=== PATIENT | female | born 2000 | race Caucasian/White ===

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

== ENCOUNTER 2020-01-19 09:36 | Emergency (ER) | payer OTHER ==
[2020-01-19 09:48] VITALS: BP 114/70; PULSE 95
--- NOTE | 2020-01-19 10:13 | EDM.PDOC ---
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 About 1 hour prior to arrival, the patient was upset and punched a wall with her left hand. She presents to the emergency department complaining of pain to the left fifth metacarpal and the left side of her wrist joint worse with movement, better with rest. Also complains of some shooting pain up the proximal ulnar side of the left forearm. Denies any other injuries or complaints. No self treatment prior to arrival. Past medical history: Reviewed, no additional pertinent history. Surgical history: Reviewed in system, no additional pertinent history. Social history: Reviewed in system, no additional pertinent history. Family history: Reviewed in system, no additional pertinent history. PHYSICAL EXAM Vital signs reviewed. Nursing notes reviewed. Constitutional: Awake, alert, non-distressed. Head: Normocephalic, atraumatic. Eyes: EOMI, conjunctiva normal, no discharge, no scleral icterus. Cardiovascular: 2+ left radial pulse, capillary refill less than 2 seconds. Pulmonary: normal work of breathing, no accessory muscle use. Abdomen/GI: nondistended Musculoskeletal: No deformities. Mild tenderness to palpation to the proximal aspect of the left fifth metacarpal and over the left triquetrum and pisiform bones. Limited active range of motion of the left wrist due to pain. Able to make a thumbs up and okay sign with left hand, unable to touch the left thumb to the left fifth finger due to pain at the left wrist joint. Integumentary: Appropriate color for ethnicity, warm, dry, no pallor or jaundice, no rash. Neurologic: Alert, answering questions appropriately, normal speech, no facial droop, moving all extremities well. Complains of subjective diminished sensation to the left finger and the left fourth finger, although not in the classic ulnar nerve distribution given that there is involvement of the radial side of the left fourth finger. Psychiatric: Appropriate mood and affect, normal thought process. left hand Pain Score (Numeric/FACES): 7 - Related Data Allergies Allergy/AdvReac Type Severity Reaction Status Date / Time amoxicillin Allergy Hives Verified 01/19/20 09:48 Home Meds: Home Meds . [No Known Home Meds] 12/31/16 [History] Past Medical History - Past Health History Medical/Surgical History: Denies Medical/Surgical History HEENT History: Reports: None Cardiovascular History: Reports: None Respiratory History: Reports: None Gastrointestinal History: Reports: None Genitourinary History: Reports: None DRY COLOR MIXER History: Reports: None, Therapeutic Musculoskeletal History: Reports: Other (See Below) Other Musculoskeletal History: Avascular necrosis of the right hip (Djqh-Plnvv-Gpdqssv Disease) Neurological History: Reports: None Psychiatric History: Reports: Depression Endocrine/Metabolic History: Reports: None Insulin Pump Model and Authorization Nurse: None Hematologic History: Reports: None Oncologic (Cancer) History: Reports: None Dermatologic History: Reports: None - Infectious Disease History Infectious Disease History: Reports: None - Past Surgical History Head Surgeries/Procedures: Reports: None HEENT Surgical History: Reports: Myringotomy w Tube(s) Other Musculoskeletal Surgeries/Procedures:: hx hip surgery Social & Family History - Family History Family Medical History: Noncontributory - Tobacco Use Smoking Status *Q: Current Some Day Smoker Years of Tobacco use: 1 Packs/Tins Daily: 0 - Caffeine Use Caffeine Use: Reports: Coffee - Recreational Drug Use Recreational Drug Use: No Review of Systems - Review of Systems Review Of Systems: See Below ED EXAM, GENERAL - Physical Exam Exam: See Below Course - Vital Signs Text/Narrative:: Patient hemodynamically stable, afebrile, well-appearing, looks nontoxic. Differential diagnosis includes but is not limited to: Fracture, dislocation, soft tissue injury, vascular injury, nerve injury, and many others. Strong left radial pulse, patient does complain of diminished sensation in a mixture of the ulnar and median distributions of the left hand, but a nerve injury would be unlikely given lack of swelling or bony abnormalities noted on x-rays. On external visual examination, there is no evidence of an abnormality to the left hand, wrist, or forearm. No tenderness to palpation of the left anatomic snuffbox so low suspicion for scaphoid fracture. Offered any oral analgesic medications, which she declined. X-rays the left wrist and hand were negative for bony injury. Suspect a wrist sprain. Will place a removable left wrist splint, duration 1 month, indication: Left wrist sprain. Stable to discharge home with outpatient primary care follow-up. Recommended [id number] Tylenol and Motrin along with ice packs as needed for pain. Strict emergency department return precautions were provided, patient indicated understanding. All questions were answered prior to departure. Discharged in good condition. Last Recorded V/S: Last Vital Signs Temp 36.3 C 01/19/20 09:46 Pulse 95 01/19/20 09:46 Resp 16 01/19/20 09:46 BP 114/70 01/19/20 09:46 Pulse Ox 97 01/19/20 09:46 - Orders/Labs/Meds Orders: Active Orders 24 hr Category Date Time Status DME for Discharge [COMM] Stat Oth 01/19/20 11:07 Ordered Departure - Departure Time of Disposition: 10:50 Disposition: Home, Self-Care 01 Condition: Good Clinical Impression: Left wrist sprain Qualifiers: Encounter type: initial encounter Qualified Code(s): S63.502A - Unspecified sprain of left wrist, initial encounter - Discharge Information *PRESCRIPTION DRUG MONITORING PROGRAM REVIEWED*: Not Applicable *COPY OF PRESCRIPTION DRUG MONITORING REPORT IN PATIENT JOSEY: Not Applicable Instructions: Wrist Sprain, Adult, How to Use Cold Therapy Referrals: [facility] - Orthopaedics [Provider Group] - 2 Weeks (As needed for any persistent complaints.) Forms: ED Department Discharge Additional Instructions: Thank you for choosing the [facility] [place] [facility] in [place] for your medical needs today. It was a pleasure caring for you. You were seen in the emergency department for left hand and wrist pain. X-rays were negative. I suspect that you have a sprain of your left wrist joint. We will place you in a removable splint. I recommend [id number] Tylenol and Motrin as needed for pain along with an ice pack, you can apply ice for 15 minutes every hour. I would follow-up with orthopedic surgery clinic in the next 1 to 2 weeks if you are not feeling better. If your symptoms worsen, come back to the ER immediately. Please return the emergency department immediately if your symptoms worsen or if you feel worse. The following information is given to patients seen in the emergency department who are being discharged. This information is to outline your options for follow-up care. We provide all patients seen in our emergency department with a follow-up referral. The need for follow-up, as well as the timing and circumstances, are variable depending upon the specifics of your emergency department visit. If you don't have a primary care physician on staff, we will provide you with a referral. We always advise you to contact your personal physician following an emergency department visit to inform them of the circumstance of the visit and for follow-up with them and/or the need for any referrals to a consulting specialist. The emergency department will also refer you to a specialist when appropriate. This referral assures that you have the opportunity for follow-up care with a specialist. All of these measure are taken in an effort to provide you with optimal care, which includes your follow-up. Under all circumstances we always encourage you to contact your private physician who remains a resource for coordinating your care. When calling for follow-up care, please make the office aware that this follow-up is from your recent emergency room visit. If for any reason you are refused follow-up, please contact the [facility] Emergency Department at and asked to speak to the emergency department charge nurse. If you do not have a primary care physician that is caring for you, you can contact these clinics below to set up an appointment to establish care: [facility] - Primary [facility] [address] [place] [address] [facility] [address] [place] [address] Sepsis Event Note (ED) - Evaluation Sepsis Screening Result: No Definite Risk - Focused Exam Vital Signs: Vital Signs Temp Pulse Resp BP Pulse Ox 01/19/20 09:46 36.3 C 95 16 114/70 97 - My Orders Last 24 Hours: My Active Orders 01/19/20 11:07 DME for Discharge [COMM] Stat - Assessment/Plan Last 24 Hours: My Active Orders 01/19/20 11:07 DME for Discharge [COMM] Stat
--- NOTE | 2020-01-19 10:46 | CR ---
Left wrist: 3 views left wrist were obtained. Comparison: No previous wrist study. Joint spaces are preserved. Cyst is noted within the distal navicular bone. No acute fracture, dislocation or other bony abnormality is appreciated. Impression: 1. Cyst is noted within the distal navicular bone. 2. Nothing acute is appreciated on 3 view left wrist exam. Diagnostic code #2 This report was dictated in MDT
--- NOTE | 2020-01-19 10:48 | CR ---
Left hand: 3 views of the left hand were obtained. Comparison: No prior hand exam. Joint spaces are preserved. No fracture, dislocation or other bony abnormality is appreciated. Impression: 1. Nothing acute is seen on 3 view left hand exam. Diagnostic code #1 This report was dictated in MDT
== END 2020-01-19 11:20 | disposition home or self-care (01) ==
LOC: MW.ED 09:36
DX: S63.502A Unspecified sprain of left wrist, initial encounter (principal); F17.210 Nicotine dependence, cigarettes, uncomplicated; Z88.1 Allergy status to other antibiotic agents; W22.01XA Walked into wall, initial encounter
CPT/HCPCS: 73110-26-LT; 73110-LT; 73130-26-LT; 73130-LT; 99282; 99283-25

== ENCOUNTER 2020-02-17 06:34 | Day surgery (SDC) | payer OTHER ==
[~2020-02-17 06:34] MED LIST: Lactated Ringers 1,000 ML IV SCH
[2020-02-17] MEDS ORDERED: Midazolam 1 MG/ML 2 ML SDV ONE (07:06)
[2020-02-17] MEDS ORDERED: Ondansetron 4 MG/2 ML SDV ONE (07:06)
[2020-02-17] MEDS ORDERED: Propofol 200 MG/20 ML SDV ONE (07:06)
[2020-02-17] MEDS ORDERED: Lidocaine 2% 5 ML SDV ONE (07:06)
[2020-02-17] MEDS ORDERED: fentaNYL 250 MCG/5 ML SDV ONE (07:06)
--- NOTE | 2020-02-17 07:21 | PCM.PREANE ---
Preanesthetic Assessment - Anesthesia/Transfusion/Family Hx Anesthesia History: Prior Anesthesia Without Reaction Family History of Anesthesia Reaction: No Transfusion History: No Prior Transfusion(s) - Review of Systems General: No Symptoms Pulmonary: No Symptoms Cardiovascular: No Symptoms Gastrointestinal: No Symptoms Neurological: No Symptoms - Physical Assessment NPO Status Date: 02/16/20 Height: 5 ft 2 in Weight: 60.328 kg ASA Class: 1 Mental Status: Alert & Oriented x3 Airway Class: Mallampati = 1 Dentition: Reports: Normal Dentition ROM/Head Extension: Full Lungs: Clear to Auscultation, Normal Respiratory Effort Cardiovascular: Regular Rate, Regular Rhythm - Allergies Allergies/Adverse Reactions: Allergies Allergy/AdvReac Type Severity Reaction Status Date / Time amoxicillin Allergy Hives Verified 02/14/20 09:49 - Blood Blood Available: No - Anesthesia Plan Pre-Op Medication Ordered: None - Acknowledgements Anesthesia Type Planned: General Anesthesia Pt an Appropriate Candidate for the Planned Anesthesia: Yes Alternatives and Risks of Anesthesia Discussed w Pt/Guardian: Yes Pt/Guardian Understands and Agrees with Anesthesia Plan: Yes Additional Comments: pmh: none, tongue stud PLAN: ga- lma or mask PreAnesthesia Questionnaire - Past Health History Medical/Surgical History: Denies Medical/Surgical History HEENT History: Reports: None Cardiovascular History: Reports: None Respiratory History: Reports: None Gastrointestinal History: Reports: None Genitourinary History: Reports: None SAND MIXER History: Reports: Therapeutic Musculoskeletal History: Reports: Other (See Below) Other Musculoskeletal History: Avascular necrosis of the right hip (Zzfa-Sfian-Wakulhs Disease) Neurological History: Reports: Seizure Other Neuro History: 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", none since age 12 Psychiatric History: Reports: Anxiety, Depression Endocrine/Metabolic History: Reports: None Hematologic History: Reports: None Immunologic History: Reports: None Oncologic (Cancer) History: Reports: None Dermatologic History: Reports: None - Infectious Disease History Infectious Disease History: Reports: None - Past Surgical History Head Surgeries/Procedures: Reports: None HEENT Surgical History: Reports: Myringotomy w Tube(s) Cardiovascular Surgical History: Reports: None Respiratory Surgical History: Reports: None GI Surgical History: Reports: None Endocrine Surgical History: Reports: None Neurological Surgical History: Reports: None Other Musculoskeletal Surgeries/Procedures:: hx lt hip surgery with plate and screws Oncologic Surgical History: Reports: None Dermatological Surgical History: Reports: Other (See Below) - SUBSTANCE USE Smoking Status *Q: Current Some Day Smoker Tobacco Use Within Last Twelve Months: Cigarettes - HOME MEDS Home Medications: Home Meds metroNIDAZOLE [Metronidazole] 500 mg PO BID 02/14/20 [History] - CURRENT (IN HOUSE) MEDS Current Meds: Current Medications Lactated Ringer's (Ringers, Lactated) 1,000 mls @ 100 mls/hr IV ASDIRECTED JORGE Discontinued Medications Fentanyl (Sublimaze) Confirm Administered Dose 250 mcg .ROUTE .STK-MED ONE Stop: 02/17/20 07:07 Lidocaine (Xylocaine-Mpf 2%) Confirm Administered Dose 5 ml .ROUTE .STK-MED ONE Stop: 02/17/20 07:07 Midazolam HCl (Versed 1 Mg/Ml) Confirm Administered Dose 2 mg .ROUTE .STK-MED ONE Stop: 02/17/20 07:07 Ondansetron HCl (Zofran) Confirm Administered Dose 4 mg .ROUTE .STK-MED ONE Stop: 02/17/20 07:07 Propofol (Diprivan 20 Ml) Confirm Administered Dose 200 mg .ROUTE .STK-MED ONE Stop: 02/17/20 07:07
[2020-02-17] MEDS ORDERED: Lidocaine 1% 20 ML MDV ONE (07:28)
--- NOTE | 2020-02-17 08:45 | PCM.DCSUM1 ---
Discharge Summary - Hospital Course Diagnosis: Stroke: No - Discharge Data Discharge Date: 02/17/20 Discharge Disposition: Home, Self-Care 01 Condition: Good - Referral to Home Health Primary Care Physician: Cedrick Griffith MD - Patient Instructions Diet: Usual Diet as Tolerated Activity: As Tolerated Driving: Do Not Drive Showering/Bathing: May Shower - Discharge Plan Home Medications: Home Meds metroNIDAZOLE [Metronidazole] 500 mg PO BID 02/14/20 [History] - Discharge Summary/Plan Comment DC Time >30 min.: Yes - General Info Date of Service: 02/17/20 Functional Status: Reports: Pain Controlled - Review of Systems General: Reports: No Symptoms HEENT: Reports: No Symptoms Pulmonary: Reports: No Symptoms Cardiovascular: Reports: No Symptoms Gastrointestinal: Reports: No Symptoms Genitourinary: Reports: No Symptoms Musculoskeletal: Reports: No Symptoms Skin: Reports: No Symptoms Neurological: Reports: No Symptoms Psychiatric: Reports: No Symptoms - Patient Data Vitals - Most Recent: Last Vital Signs Temp 36.5 C 02/17/20 06:45 Pulse 82 02/17/20 06:45 Resp 16 02/17/20 06:45 BP 126/86 02/17/20 06:45 Pulse Ox 99 02/17/20 06:45 Weight - Most Recent: 60.328 kg Lab Results - Last 24 hrs: Laboratory Results - last 24 hr 02/17/20 Range/Units 07:10 Urine HCG, Qual NEGATIVE (NEGATIVE) Med Orders - Current: Current Medications Lactated Ringer's (Ringers, Lactated) 1,000 mls @ 100 mls/hr IV ASDIRECTED JORGE Last Admin: 02/17/20 08:03 Dose: 100 mls/hr Documented by: Discontinued Medications Fentanyl (Sublimaze) Confirm Administered Dose 250 mcg .ROUTE .STK-MED ONE Stop: 02/17/20 07:07 Lidocaine (Xylocaine-Mpf 2%) Confirm Administered Dose 5 ml .ROUTE .STK-MED ONE Stop: 02/17/20 07:07 Lidocaine HCl (Xylocaine 1%) Confirm Administered Dose 20 ml .ROUTE .STK-MED ONE Stop: 02/17/20 07:29 Midazolam HCl (Versed 1 Mg/Ml) Confirm Administered Dose 2 mg .ROUTE .STK-MED ONE Stop: 02/17/20 07:07 Ondansetron HCl (Zofran) Confirm Administered Dose 4 mg .ROUTE .STK-MED ONE Stop: 02/17/20 07:07 Propofol (Diprivan 20 Ml) Confirm Administered Dose 200 mg .ROUTE .STK-MED ONE Stop: 02/17/20 07:07 - Exam General: Reports: Alert, Oriented HEENT: Reports: Pupils Equal, Pupils Reactive, EOMI, Mucous Membr. Moist/[place] Neck: Reports: Supple Lungs: Reports: Clear to Auscultation, Normal Respiratory Effort Cardiovascular: Reports: Regular Rate, Regular Rhythm GI/Abdominal Exam: Normal Bowel Sounds, Soft, Non-Tender, No Organomegaly, No Distention, No Abnormal Bruit, No Mass, Pelvis Stable (Female) Exam: Normal External Exam, Normal Speculum Exam, Normal Bimanual Exam Rectal (Female) Exam: Normal Exam, Normal Rectal Tone Back Exam: Reports: Normal Inspection, Full Range of Motion Extremities: Normal Inspection, Normal Range of Motion, Non-Tender, No Pedal Edema, Normal Capillary Refill Skin: Reports: Warm, Dry, Intact Wound/Incisions: Reports: Healing Well Neurological: Reports: No New Focal Deficit Psy/Mental Status: Reports: Alert, Normal Affect, Normal Mood
--- NOTE | 2020-02-17 08:47 | PCM.OPNOTE ---
- General Post-Op/Procedure Note Date of Surgery/Procedure: 02/17/20 Operative Procedure(s): Dignistic Hystroscopy Post-Op Diagnosis: Same Anesthesia Technique: General LMA Primary Surgeon: Cedrick Griffith Pediatric Anesthesiologist: Shari Swift in mLs: 100 Complications: None Condition: Good
[2020-02-17] MEDS ORDERED: Morphine 10 MG/ML Syringe IVPUSH PRN ×2 (09:00→09:42)
[2020-02-17] MEDS ORDERED: Ketorolac 30 MG/ML SDV IVPUSH ONE (09:07)
[2020-02-17] MEDS ORDERED: Naloxone 0.4 MG/ML Syringe IVPUSH PRN (09:08)
[2020-02-17] MEDS ORDERED: Albuterol 0.083% 2.5 MG/3 ML Neb Soln NEB PRN (09:08)
[2020-02-17] MEDS ORDERED: Atropine 0.1 MG/ML 10 ML Syringe IVPUSH PRN ×2 (09:08)
[2020-02-17] MEDS ORDERED: fentaNYL 100 MCG/2 ML SDV IVPUSH PRN (09:08)
[2020-02-17] MEDS ORDERED: 50% Dextrose in Water 50 ML Syringe IVPUSH PRN (09:08)
[2020-02-17] MEDS ORDERED: EPINEPHrine 1:10,000 1 MG/10 ML Syringe IVPUSH PRN (09:08)
[2020-02-17] MEDS ORDERED: Acetaminophen/oxyCODONE 325-5 MG Tab PO PRN (09:41)
[2020-02-17] MEDS ORDERED: Acetaminophen/oxyCODONE 325-5 MG Tab ONE (09:50)
[2020-02-17] MEDS ORDERED: Morphine 10 MG/ML Syringe ONE (09:51)
--- NOTE | 2020-02-17 10:42 | PCM.POSTAN ---
POST ANESTHESIA ASSESSMENT - MENTAL STATUS Mental Status: Alert, Oriented - VITAL SIGNS Vital Signs: Last Vital Signs Temp 97.2 F 02/17/20 08:43 Pulse 64 02/17/20 09:12 Resp 12 02/17/20 09:12 BP 123/89 02/17/20 09:12 Pulse Ox 95 02/17/20 09:12 - RESPIRATORY Respiratory Status: Respiratory Rate WNL, Airway Patent, O2 Saturation Stable - CARDIOVASCULAR CV Status: Pulse Rate WNL, Blood Pressure Stable - GASTROINTESTINAL GI Status: No Symptoms - POST OP HYDRATION Hydration Status: Adequate & Stable
--- NOTE | 2020-02-17 10:43 | PCM48HPAN ---
Post Anesthesia Note - EVALUATION WITHIN 48HRS OF ANESTHETIC Vital Signs in Normal Range: Yes Patient Participated in Evaluation: Yes Respiratory Function Stable: Yes Airway Patent: Yes Cardiovascular Function Stable: Yes Hydration Status Stable: Yes Pain Control Satisfactory: Yes Nausea and Vomiting Control Satisfactory: Yes Mental Status Recovered: Yes Vital Signs: Last Vital Signs Temp 97.2 F 02/17/20 08:43 Pulse 64 02/17/20 09:12 Resp 12 02/17/20 09:12 BP 123/89 02/17/20 09:12 Pulse Ox 95 02/17/20 09:12
[2020-02-17 12:55] VITALS: BP 118/72; PULSE 63
--- NOTE | 2020-02-17 14:05 | OR ---
SURGEON: Cedrick Griffith MD DATE OF PROCEDURE: 02/17/2020 PREOPERATIVE DIAGNOSIS: Lost intrauterine device. POSTOPERATIVE DIAGNOSIS: Lost intrauterine device. OPERATION PERFORMED: Diagnostic hysteroscopy, removal of intrauterine device. PRIMARY SURGEON: Cedrick Griffith MD FIBER PRODUCT CUTTING MACHINE OPERATOR: Shari Swift. ANESTHESIA: LMA, [place]. ESTIMATED BLOOD LOSS: 100 mL. COMPLICATIONS: None. FINDINGS: Lost IUD. The hysteroscopy findings are essentially normal. INDICATIONS FOR SURGERY: This patient is 19. She presented to the office for removal of the IUD. However, we were unable to remove the IUD because it was felt to be embedded in the sidewall and the strings just could not be visible, so we scheduled the patient for hysteroscopy. PROCEDURE IN DETAIL: The patient was brought to the OR. After adequate level of anesthesia, the patient was prepped and draped in sterile fashion as usual. A straight catheter was used to empty the bladder and then single tenaculum was applied to the cervix for stabilization and the cervix was dilated to accommodate the MyoSure hysteroscope. The hysteroscopy was performed. The hysteroscopic finding essentially was normal. The IUD was identified and was grasped with a grasper through the hysteroscope and removed without any problem. Once we accomplished that, the procedure ended. The instrument and sponge count was correct. The patient tolerated the procedure well, went to recovery room in stable general condition. VIV / LUZ MARINA /[id number]
== END 2020-02-17 11:00 | disposition home or self-care (01) ==
LOC: MW.SDS 06:34
PROVIDERS: ATTEND Obstetrics & Gynecology
DX: T83.32XA Displacement of intrauterine contraceptive device, initial encounter (principal); N94.6 Dysmenorrhea, unspecified; N92.0 Excessive and frequent menstruation with regular cycle; N94.89 Other specified conditions associated with female genital organs and menstrual cycle; F41.9 Anxiety disorder, unspecified; F32.9 Major depressive disorder, single episode, unspecified; F17.210 Nicotine dependence, cigarettes, uncomplicated; Z88.0 Allergy status to penicillin
CPT/HCPCS: 58562; 81025; A9270; J1885; J2001; J2250; J2270; J2405; J2704; J3010; J7120; 00952; 88300

== ENCOUNTER 2020-06-13 17:02 | Emergency (ER) | payer MEDICAID ==
--- NOTE | 2020-06-13 17:34 | EDM.PDOC ---
ED HPI GENERAL MEDICAL PROBLEM - General Chief Complaint: X RAY NURSE Problem Stated Complaint: POSSIBLE MISCARRIAGE Time Seen by Provider: 06/13/20 17:05 Source of Information: Reports: Patient History Limitations: Reports: No Limitations - History of Present Illness INITIAL COMMENTS - FREE TEXT/NARRATIVE: HISTORY AND PHYSICAL: History of present illness: Patient is a 19-year-old female presents to the ED today with concern of possible versus concern for miscarriage. Patient states that on Friday, 3 days ago, she took 2 tests that were positive. Patient states today she started having some lower abdominal cramping sensations so she took 2 more tests. Patient states one test was negative and the other test was a faint positive according to patient. Patient states that she has been having some lower abdominal cramping that does feel similar to her menstrual cycle and states that she took the test initially because she missed her menstrual cycle 5 days ago. Denies any vaginal bleeding, or discharge. Patient denies fever, chills, chest pain, shortness of breath, or cough. Denies headache, neck stiff ness, change in vision, syncope, or near syncope. Denies nausea, vomiting, diarrhea, constipation, or dysuria. Has not noted any blood in urine or stool. Patient has been eating and drinking appropriately. Review of systems: As per history of present illness and below otherwise all systems reviewed and negative. Past medical history: As per history of present illness and as reviewed below otherwise noncontributory. Surgical history: As per history of present illness and as reviewed below otherwise noncontributory. Social history: See social history for further information Family history: As per history of present illness and as reviewed below otherwise noncontributory. Physical exam: General: Patient is alert, oriented, and in no acute distress. Patient sitting comfortably on exam table. Vitals stable and reviewed by me. HEENT: Atraumatic, normocephalic, pupils equal and reactive bilaterally, negative for conjunctival pallor or scleral icterus, mucous membranes moist, TMs normal bilaterally, throat clear, neck supple, nontender, trachea midline. No drooling or trismus noted. No meningeal signs. No hot potato voice noted. Lungs: Clear to auscultation, breath sounds equal bilaterally, chest nontender. Heart: S1S2, regular rate and rhythm without overt murmur Abdomen: Soft, nondistended, nontender. Negative for masses or hepatosplenomegaly. Negative for costovertebral tenderness. Pelvis: Stable nontender. Genitourinary: Deferred. Rectal: Deferred. Skin: Intact, warm, dry. No lesions or rashes noted. Extremities: Atraumatic, negative for cords or calf pain. Neurovascular unremarkable. Neuro: Awake, alert, oriented. Cranial nerves II through XII unremarkable. Cerebellum unremarkable. Motor and sensory unremarkable throughout. Exam nonfocal. Notes: Strict return precautions thoroughly discussed with patient. Discussed the importance for follow up with women health provider. Voices understanding and is agreeable to plan of care. Denies any further questions or concerns at this time. Diagnostics: CBC, CMP, UA, Serum hcg quant, TVUS Therapeutics: None Prescription: None Impression: Lower abdominal cramping Plan: 1. Please start and/or continue to take your vitamin with folic acid once daily. 2. Pelvic rest until cleared by your OBGYN (no tampons, sex, etc...) 3. Tylenol as needed for pain management. This is safe to use in . 4. Follow up with your X RAY NURSE as discussed. Return to the ED as needed and as discussed. Definitive disposition and diagnosis as appropriate pending reevaluation and review of above. - Related Data Allergies Allergy/AdvReac Type Severity Reaction Status Date / Time amoxicillin Allergy Hives Verified 06/13/20 17:14 Home Meds: Home Meds . 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) Neurological History: Reports: Seizure Other Neuro History: 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", none since age 12 Psychiatric History: Reports: Anxiety, Depression Endocrine/Metabolic History: Reports: None Insulin Pump Model and Auto Hauler: None Hematologic History: Reports: None Immunologic History: Reports: None Oncologic (Cancer) History: Reports: None Dermatologic History: Reports: None - Infectious Disease History Infectious Disease History: Reports: None - Past Surgical History Head Surgeries/Procedures: Reports: None HEENT Surgical History: Reports: Myringotomy w Tube(s) Cardiovascular Surgical History: Reports: None Respiratory Surgical History: Reports: None GI Surgical History: Reports: None Endocrine Surgical History: Reports: None Neurological Surgical History: Reports: None Other Musculoskeletal Surgeries/Procedures:: hx lt hip surgery with plate and screws Oncologic Surgical History: Reports: None Dermatological Surgical History: Reports: Other (See Below) Social & Family History - Family History Family Medical History: No Pertinent Family History - Caffeine Use Caffeine Use: Reports: Soda - Recreational Drug Use Recreational Drug Use: No ED ROS GENERAL - Review of Systems Review Of Systems: Comprehensive ROS is negative, except as noted in HPI. ED EXAM, GENERAL - Physical Exam Exam: See Below (see dictation) Course - Vital Signs Last Recorded V/S: Last Vital Signs Temp 98.2 F 06/13/20 17:16 Pulse 83 06/13/20 17:16 Resp 18 06/13/20 17:16 BP 113/70 06/13/20 17:16 Pulse Ox 100 06/13/20 17:16 - Orders/Labs/Meds Labs: Laboratory Tests 06/13/20 06/13/20 06/13/20 Range/Units 17:40 17:40 17:40 WBC 7.56 (4.0-11.0) K/uL RBC 4.26 L (4.30-5.90) M/uL Hgb 12.1 (12.0-16.0) g/dL Hct 36.7 (36.0-46.0) % MCV 86.2 (80.0-98.0) fL MCH 28.4 (27.0-32.0) pg MCHC 33.0 (31.0-37.0) g/dL RDW Std Deviation 40.7 (28.0-62.0) fl RDW Coeff of Nannette 13 (11.0-15.0) % Plt Count 237 (150-400) K/uL MPV 10.40 (7.40-12.00) fL Neut % (Auto) 66.0 (48.0-80.0) % Lymph % (Auto) 23.0 (16.0-40.0) % [place] % (Auto) 9.8 (0.0-15.0) % Eos % (Auto) 0.9 (0.0-7.0) % Baso % (Auto) 0.3 (0.0-1.5) % Neut # (Auto) 5.0 (1.4-5.7) K/uL Lymph # (Auto) 1.7 (0.6-2.4) K/uL [place] # (Auto) 0.7 (0.0-0.8) K/uL Eos # (Auto) 0.1 (0.0-0.7) K/uL Baso # (Auto) 0.0 (0.0-0.1) K/uL Nucleated RBC % 0.0 /100WBC Nucleated RBCs # 0 K/uL Sodium 140 (136-145) mmol/L Potassium 3.9 (3.5-5.1) mmol/L Chloride 105 (98-107) mmol/L Carbon Dioxide 24.4 (21.0-32.0) mmol/L BUN 10 (7.0-18.0) mg/dL Creatinine 0.8 (0.6-1.0) mg/dL Est Cr Clr Drug Dosing 89.46 mL/min Estimated GFR (MDRD) > 60.0 ml/min Glucose 93 (74-106) mg/dL Calcium 9.0 (8.5-10.1) mg/dL Total Bilirubin 0.4 (0.2-1.0) mg/dL AST 22 (15-37) IU/L ALT 27 (14-63) IU/L Alkaline Phosphatase 88 (46-116) U/L Total Protein 7.5 (6.4-8.2) g/dL Albumin 3.6 (3.4-5.0) g/dL Globulin 3.9 (2.6-4.0) g/dL Albumin/Globulin Ratio 0.9 (0.9-1.6) HCG, Quant 14.0 mIU/mL Blood Type O POSITIVE Departure - Departure Time of Disposition: 20:22 Disposition: Home, Self-Care 01 Clinical Impression: Bilateral lower abdominal cramping Qualifiers: Weeks of gestation: unspecified Qualified Code(s): Z34.90 - Encounter for supervision of normal , unspecified, unspecified trimester - Discharge Information Instructions: Care Referrals: Nehal Hewitt NP [Primary Care Provider] - Forms: ED Department Discharge Additional Instructions: The following information is given to patients seen in the emergency department who are being discharged to home. This information is to outline your options for follow-up care. We provide all patients seen in our emergency department with a follow-up referral. The need for follow-up, as well as the timing and circumstances, are variable depending upon the specifics of your emergency department visit. If you don't have a primary care physician on staff, we will provide you with a referral. We always advise you to contact your personal physician following an emergency department visit to inform them of the circumstance of the visit and for follow-up with them and/or the need for any referrals to a consulting specialist. The emergency department will also refer you to a specialist when appropriate. This referral assures that you have the opportunity for follow-up care with a specialist. All of these measure are taken in an effort to provide you with optimal care, which includes your follow-up. Under all circumstances we always encourage you to contact your private physician who remains a resource for coordinating your care. When calling for follow-up care, please make the office aware that this follow-up is from your recent emergency room visit. If for any reason you are refused follow-up, please contact the [facility] Emergency Department at and asked to speak to the emergency department charge nurse. [facility] [address] [place] [address] [facility] [address] [place] [id number] [facility] [address] [place] [address] 1. Please start and/or continue to take your vitamin with folic acid once daily. 2. Pelvic rest until cleared by your OBGYN (no tampons, sex, etc...) 3. Tylenol as needed for pain management. This is safe to use in . 4. Follow up with your X RAY NURSE as discussed. Return to the ED as needed and as discussed. Sepsis Event Note (ED) - Evaluation Sepsis Screening Result: No Definite Risk - Focused Exam Vital Signs: Vital Signs Temp Pulse Resp BP Pulse Ox 06/13/20 17:16 98.2 F 83 18 113/70 100
[2020-06-13 18:17] LABS: BLOOD UREA NITROGEN,BUN 10 mg/dL (7.0-18.0); CARBON DIOXIDE,CO2 24.4 mmol/L (21.0-32.0); CHLORIDE,CL 105 mmol/L (98-107); GLUCOSE RANDOM 93 mg/dL (74-106); POTASSIUM,K 3.9 mmol/L (3.5-5.1); SODIUM,NA 140 mmol/L (136-145)
--- NOTE | 2020-06-13 20:16 | US ---
INDICATION: . Beta hCG 14.0. Abdominal pain. COMPARISON: None available. FINDINGS: Transvaginal ultrasound examination of the female pelvis was performed. An intrauterine gestational sac cannot be identified. The uterus is anteverted with no evidence of mass. It measures 7.5 x 3.5 x 3.8 cm. The endometrial lining is top-normal in thickness at 8 mm. Left ovary has a small, irregularly-shaped hypoechoic region which is probably a resolving corpus luteum cyst of measuring 0.6 x 0.3 x 0.8 centimeters. The ovary itself is normal in size, measuring 2.7 x 1.3 x 2.4 centimeters. There is normal color doppler flow in the left ovary. The right ovary cannot be identified. There is a trace amount of free fluid in the cul-de-sac, probably physiologic. IMPRESSION: No identifiable intrauterine gestation. With the very low beta HCG, this is probably a completed spontaneous , but early intrauterine gestation or ectopic gestation cannot be entirely excluded. Recommend correlation with serial quantitative beta HCGs. Small resolving corpus luteum cyst of in the left ovary. Right ovary cannot be identified. Dictated by Roger Ramos MD @ Jun 13 2020 8:11PM Signed by Dr. Roger Ramos @ Jun 13 2020 8:15PM
[2020-06-13 20:34] VITALS: BP 108/72; PULSE 72
== END 2020-06-13 20:32 | disposition home or self-care (01) ==
LOC: MW.ED 17:02
DX: O99.891 Other specified diseases and conditions complicating pregnancy (principal); R10.31 Right lower quadrant pain; R10.32 Left lower quadrant pain; Z88.1 Allergy status to other antibiotic agents
CPT/HCPCS: 36415; 76801; 76801-26; 80053; 84702; 85025; 86900; 86901; 99284-25

== ENCOUNTER 2020-06-16 19:04 | Emergency (ER) | payer MEDICAID ==
--- NOTE | 2020-06-16 19:11 | EDM.PDOC ---
ED HPI GENERAL MEDICAL PROBLEM - General Chief Complaint: TIP PUNCHER Problem Stated Complaint: POSSIBLE MISCARRIAGE Time Seen by Provider: 06/16/20 19:06 Source of Information: Reports: Patient History Limitations: Reports: No Limitations - History of Present Illness INITIAL COMMENTS - FREE TEXT/NARRATIVE: HISTORY AND PHYSICAL: History of present illness: Patient is a 19-year-old female who presents to the emergency room with complaints of low abdominal pain and vaginal bleeding in . She was seen in the emergency room on 06/13/2024 abdominal pain with and had an ultrasound done. At that time her quantitative hCG was 14.0. She followed up with her TIP PUNCHER for her repeat quantitative hCG on 06/15/2020, but states she did not hear back on the results. This morning when she woke up she had vaginal bleeding, this was a new symptom from the previous few days. She states it was like a menstrual period but this afternoon had lightened up. Approximately an hour prior to arrival she had noticed some small clot-like tissue with the bleeding and decided to come in for reevaluation. She has generalized low abdominal cramping which she states feels like a period. Patient denies any fever, chills, headache, change in vision, syncope or near syncope. Denies any chest pain, back pain, shortness of breath or cough. Denies any nausea, vomiting, diarrhea, constipation or dysuria. Has not noted any blood in urine or stool. Patient has been eating and drinking appropriately. Last menstrual period 05/07/2020, 3, para 0. Review of systems: As per history of present illness and below otherwise all systems reviewed and negative. Past medical history: As per history of present illness and as reviewed below otherwise noncontributory. Surgical history: As per history of present illness and as reviewed below otherwise noncontributory. Social history: See social history for further information Family history: As per history of present illness and as reviewed below otherwise noncontributory. Physical exam: General: Well developed and well nourished. Alert and orientated x 3. Nontoxic in appearance and in no acute distress. Vital signs are stable and have been reviewed by me. Nursing notes were reviewed. HEENT: Atraumatic, normocephalic, pupils equal and reactive bilaterally, negative for conjunctival pallor or scleral icterus, mucous membranes moist, TMs normal bilaterally, throat clear, neck supple, nontender, trachea midline. No drooling or trismus noted. No meningeal signs. No hot potato voice noted. Lungs: Clear to auscultation, breath sounds equal bilaterally, chest nontender. Normal work of breathing, no accessory muscles used. Heart: S1S2, regular rate and rhythm without overt murmur Abdomen: Soft, nondistended, nontender. Negative for masses or hepatosplenomegaly. Negative for costovertebral tenderness. Pelvis: Stable nontender. Genitourinary: This was done with consent and a class c truck driver at the bedside. Cerv ical os is closed although she does have dark red blood in the vaginal vault. No active bleeding is noted coming from the os. No cervical motion tenderness. Skin: Intact, warm, dry. No lesions or rashes noted. Hematologic: No petechiae or purpra. Mucosa appropriate color and normal nail bed color and refill. Extremities: Atraumatic, moves all extremities per self without difficulty or deficits, negative for cords or calf pain. Neurovascular unremarkable. Neuro: Awake, alert, oriented. Cranial nerves II through XII unremarkable. Cerebellum unremarkable. Motor and sensory unremarkable throughout. Exam nonfocal. Psychiatric: Mood and affect are appropriate. Normal thought process. Answering questions appropriately. Notes: 06/13/20: No identifiable intrauterine gestation. With very low beta hCG this is probably a completed spontaneous , early intrauterine gestation or ectopic gestation cannot be entirely excluded. Quantitative hCG on 06/13/2020 was 14.0, 15.0 on 06/15 and 13 today. Ultrasound shows no intrauterine seen. Both ovaries appear normal and have normal color and Doppler flow. No adnexal mass or free fluid is identified. Please correlate with hCG. Due to patient's pelvic exam, quantitative hCG decline I have informed the patient that I am concerned she may have miscarried. I do need her to follow-up with her TIP PUNCHER for reevaluation. I have talked with the patient about today's findings, in addition to providing specific details for plan of care. Reassessment at the time of disposition demonstrates that the patient is in no acute distress. The patient is stable for discharge, counseling was provided and we discussed in great detail signs and symptoms that would prompt them to return to the Emergency Department. Medication, follow up a nd supportive care measures were reviewed and discussed. Voices understanding and is agreeable to plan of care. Denies any further questions or concerns at this time. Diagnostics: CBC, CMP, UA, Quant HCG Therapeutics: None Prescription: None Impression: Threatened Plan: 1. Today your quantitative HCG was 13.0 (which is lower than the previous 14.0 and 15.0 the previous few visits), this means you are likely miscarrying if you haven't already. We would like to follow this number down to 0, so please follow up with your OBGYN on Friday for re-evaluation. If your symptoms should worsen, new symptoms develop or any of the signs and symptoms we discussed should arise please return to the emergency room or call 911 (if needed). 2. Pelvic rest until cleared by OBGYN (no sex, tampons, etc...) 3. Tylenol as needed for pain management. Definitive disposition and diagnosis as appropriate pending reevaluation and review of above. Lower Abdomen Pain Score (Numeric/FACES): 2 - Related Data Allergies Allergy/AdvReac Type Severity Reaction Status Date / Time amoxicillin Allergy Hives Verified 06/16/20 19:17 Home Meds: Home Meds No122/Iron/Folic Acid [ Multi Tablet] 06/16/20 [History] Past Medical History - Past Health History Medical/Surgical History: Denies Medical/Surgical History HEENT History: Reports: None Cardiovascular History: Reports: None Respiratory History: Reports: None Gastrointestinal History: Reports: None Genitourinary History: Reports: None TIP PUNCHER History: Reports: Therapeutic Other TIP PUNCHER History: IUDsx removal Musculoskeletal History: Reports: Other (See Below) Other Musculoskeletal History: 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) Neurological History: Reports: Seizure Other Neuro History: 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", none since age 12 Psychiatric History: Reports: Anxiety, Depression Endocrine/Metabolic History: Reports: None Insulin Pump Model and Key Account Director: None Hematologic History: Reports: None Immunologic History: Reports: None Oncologic (Cancer) History: Reports: None Dermatologic History: Reports: None - Infectious Disease History Infectious Disease History: Reports: None - Past Surgical History Head Surgeries/Procedures: Reports: None HEENT Surgical History: Reports: Myringotomy w Tube(s) Cardiovascular Surgical History: Reports: None Respiratory Surgical History: Reports: None GI Surgical History: Reports: None Endocrine Surgical History: Reports: None Neurological Surgical History: Reports: None Other Musculoskeletal Surgeries/Procedures:: hx lt hip surgery with plate and screws Oncologic Surgical History: Reports: None Dermatological Surgical History: Reports: Other (See Below) Social & Family History - Family History Family Medical History: No Pertinent Family History - Caffeine Use Caffeine Use: Reports: Soda ED ROS GENERAL - Review of Systems Review Of Systems: Comprehensive ROS is negative, except as noted in HPI. ED EXAM - Physical Exam Exam: See Below (See dictation) Course - Vital Signs Last Recorded V/S: Last Vital Signs Temp 97.4 F 06/16/20 19:07 Pulse 77 06/16/20 19:07 Resp 16 06/16/20 19:07 BP 126/88 06/16/20 19:07 Pulse Ox 99 06/16/20 19:07 - Orders/Labs/Meds Orders: Active Orders 24 hr Category Date Time Status UA RFX SAMUEL AND CULT IF INDIC [URIN] Stat Lab 06/16/20 19:09 Ordered Labs: Laboratory Tests 06/16/20 06/16/20 Range/Units 19:40 19:40 WBC 8.08 (4.0-11.0) K/uL RBC 4.54 (4.30-5.90) M/uL Hgb 13.1 (12.0-16.0) g/dL Hct 39.8 (36.0-46.0) % MCV 87.7 (80.0-98.0) fL MCH 28.9 (27.0-32.0) pg MCHC 32.9 (31.0-37.0) g/dL RDW Std Deviation 41.3 (28.0-62.0) fl RDW Coeff of Nannette 13 (11.0-15.0) % Plt Count 251 (150-400) K/uL MPV 10.20 (7.40-12.00) fL Neut % (Auto) 61.5 (48.0-80.0) % Lymph % (Auto) 27.4 (16.0-40.0) % [place] % (Auto) 9.7 (0.0-15.0) % Eos % (Auto) 1.2 (0.0-7.0) % Baso % (Auto) 0.2 (0.0-1.5) % Neut # (Auto) 5.0 (1.4-5.7) K/uL Lymph # (Auto) 2.2 (0.6-2.4) K/uL [place] # (Auto) 0.8 (0.0-0.8) K/uL Eos # (Auto) 0.1 (0.0-0.7) K/uL Baso # (Auto) 0.0 (0.0-0.1) K/uL Nucleated RBC % 0.0 /100WBC Nucleated RBCs # 0 K/uL Sodium 131 L (136-145) mmol/L Potassium 3.6 (3.5-5.1) mmol/L Chloride 101 (98-107) mmol/L Carbon Dioxide 26.4 (21.0-32.0) mmol/L BUN 10 (7.0-18.0) mg/dL Creatinine 0.9 (0.6-1.0) mg/dL Est Cr Clr Drug Dosing 79.52 mL/min Estimated GFR (MDRD) > 60.0 ml/min Glucose 83 (74-106) mg/dL Calcium 9.1 (8.5-10.1) mg/dL Total Bilirubin 0.2 (0.2-1.0) mg/dL AST 22 (15-37) IU/L ALT 28 (14-63) IU/L Alkaline Phosphatase 95 (46-116) U/L Total Protein 8.3 H (6.4-8.2) g/dL Albumin 3.9 (3.4-5.0) g/dL Globulin 4.4 H (2.6-4.0) g/dL Albumin/Globulin Ratio 0.9 (0.9-1.6) HCG, Quant 13.0 mIU/mL Departure - Departure Time of Disposition: 20:46 Disposition: Home, Self-Care 01 Clinical Impression: Threatened - Discharge Information Instructions: Threatened Miscarriage, [id number] Referrals: Nehal Hewitt NP [Primary Care Provider] - Forms: ED Department Discharge Additional Instructions: The following information is given to patients seen in the emergency department who are being discharged to home. This information is to outline your options for follow-up care. We provide all patients seen in our emergency department with a follow-up referral. The need for follow-up, as well as the timing and circumstances, are variable depending upon the specifics of your emergency department visit. If you don't have a primary care physician on staff, we will provide you with a referral. We always advise you to contact your personal physician following an emergency department visit to inform them of the circumstance of the visit and for follow-up with them and/or the need for any referrals to a consulting specialist. The emergency department will also refer you to a specialist when appropriate. This referral assures that you have the opportunity for follow-up care with a specialist. All of these measure are taken in an effort to provide you with optimal care, which includes your follow-up. Under all circumstances we always encourage you to contact your private physician who remains a resource for coordinating your care. When calling for follow-up care, please make the office aware that this follow-up is from your recent emergency room visit. If for any reason you are refused follow-up, please contact the [facility] Emergency Department at and asked to speak to the emergency department charge nurse. [facility] Primary Care [address] [place] [id number] [place] [address] Thank you for choosing the [facility] emergency department in [place] for your medical needs today. It was a pleasure caring for you. Today you were seen in the emergency department for vaginal bleeding in . 1. Today your quantitative HCG was 13.0 (which is lower than the previous 14.0 and 15.0 the previous few visits), this means you are likely miscarrying if you haven't already. We would like to follow this number down to 0, so please follow up with your OBGYN on Friday for re-evaluation. If your symptoms should worsen, new symptoms develop or any of the signs and symptoms we discussed should arise please return to the emergency room or call 911 (if needed). 2. Pelvic rest until cleared by OBGYN (no sex, tampons, etc...) 3. Tylenol as needed for pain management. Sepsis Event Note (ED) - Focused Exam Vital Signs: Vital Signs Temp Pulse Resp BP Pulse Ox 06/16/20 19:07 97.4 F 77 16 126/88 99 - My Orders Last 24 Hours: My Active Orders 06/16/20 19:09 UA RFX SAMUEL AND CULT IF INDIC [URIN] Stat - Assessment/Plan Last 24 Hours: My Active Orders 06/16/20 19:09 UA RFX SAMUEL AND CULT IF INDIC [URIN] Stat
[2020-06-16 20:20] LABS: BLOOD UREA NITROGEN,BUN 10 mg/dL (7.0-18.0); CARBON DIOXIDE,CO2 26.4 mmol/L (21.0-32.0); CHLORIDE,CL 101 mmol/L (98-107); GLUCOSE RANDOM 83 mg/dL (74-106); POTASSIUM,K 3.6 mmol/L (3.5-5.1); SODIUM,NA 131 mmol/L (136-145)
--- NOTE | 2020-06-16 20:41 | US ---
INDICATION: Threatened miscarriage. 5 week 2 day gestational age by last menstrual period. TECHNIQUE: Transvaginal 1st trimester OB ultrasound. FINDINGS: Uterus is anteverted and measures 6.7 x 3.4 x 3.6 cm. Endometrial stripe thickness is 6 mm. No intrauterine is seen. Both ovaries appear normal and have normal color and spectral Doppler flow. No adnexal mass or free fluid identified. IMPRESSION: No intrauterine seen, however it may be too early. Correlation with beta HCG recommended. Dictated by Josr Solorzano MD @ Jun 16 2020 8:37PM Signed by Dr. Josr Solorzano @ Jun 16 2020 8:40PM
[2020-06-16 21:28] VITALS: BP 129/86; PULSE 80
== END 2020-06-16 21:20 | disposition home or self-care (01) ==
LOC: MW.ED 19:04
DX: O20.0 Threatened abortion (principal); Z88.1 Allergy status to other antibiotic agents
CPT/HCPCS: 36415; 76817; 76817-26; 80053; 81001; 84702; 85025; 99282; 99284-25

== ENCOUNTER 2020-07-21 22:53 | Emergency (ER) | payer MEDICAID | END 2020-07-22 00:33 | disposition left against medical advice (07) | LOC: MW.ED 22:53 | DX: Z53.21 Procedure and treatment not carried out due to patient leaving prior to being seen by health care provider (principal) ==

== ENCOUNTER 2020-07-23 23:35 | Emergency (ER) | payer MEDICAID ==
[2020-07-24] MEDS ORDERED: Prochlorperazine 10 MG/2 ML SDV IVPUSH ONE (00:50)
[2020-07-24] MEDS ORDERED: diphenhydrAMINE 50 MG/ML SDV IVPUSH ONE ×2 (00:51→01:35)
[2020-07-24] MEDS ORDERED: Dextrose 5%-0.9% NaCl 1,000 ML IV SCH (01:00)
--- NOTE | 2020-07-24 01:52 | US ---
INDICATION: Left lower quadrant pain TECHNIQUE: Ultrasound OB pelvis transvaginal. Real time dias scale imaging of the pelvis was performed. COMPARISON: None FINDINGS: Gestational sac: Sonographic imaging demonstrates a single intrauterine gestation with a normal appearance. A trace subchorionic hemorrhage is noted.The amount of fluid within the sac appears appropriate for gestational age. Fetus: The embryo demonstrates a regular cardiac rate measuring 153 beats per minute. The embryo`s crown rump length measurement of 23 mm corresponds to a gestational age of 5 weeks, 6 days. There are no gross abnormalities noted within the embryo at this early state of development. There is a normal appearing yolk sac. Placenta: The placenta has not yet developed. Pelvis: The visualized cervix is closed. The visualized myometrium appears normal. The ovaries are of normal size. No significant ascites noted. IMPRESSION: 1. Single viable intrauterine with an estimated gestational age of 5 weeks, 6 days. This is discordant with age by LMP. 2. A trace subchorionic hemorrhage is noted. Dictated by Karl Starkey MD @ 07/24/2020 1:51:11 AM Dictated by: Karl Starkey MD @ 07/24/2020 01:51:24 (Electronically Signed)
[2020-07-24 01:53] LABS: BLOOD UREA NITROGEN,BUN 11 mg/dL (7.0-18.0); CARBON DIOXIDE,CO2 24.1 mmol/L (21.0-32.0); CHLORIDE,CL 101 mmol/L (98-107); GLUCOSE RANDOM 88 mg/dL (74-106); POTASSIUM,K 3.5 mmol/L (3.5-5.1); SODIUM,NA 138 mmol/L (136-145)
--- NOTE | 2020-07-24 03:12 | EDM.PDOC ---
ED HPI GENERAL MEDICAL PROBLEM - General Chief Complaint: UROGYNAECOLOGIST Problem Stated Complaint: MISCARAGE Time Seen by Provider: 07/24/20 00:20 - History of Present Illness INITIAL COMMENTS - FREE TEXT/NARRATIVE: CHIEF COMPLAINT(S): Nausea and decreased appetite HISTORY OF PRESENT ILLNESS: This is a 19-year-old woman with a past medical history of with last menstrual period approximately 4 to 5 weeks ago who comes to the emergency department with a chief complaint of nausea and decreased appetite. The patient states that she has not had an appetite for 4 days. She denies any pelvic pain, vaginal bleeding, vaginal discharge. She states that she is approximately 5 to 6 weeks . She states that she intermittently does have some cramping in her abdomen but denies any dysuria or hematuria. She states that she has had prior miscarriages. She has never had an ectopic . She states that she was told that she may have had a miscarriage earlier this year and has not yet had a follow-up hCG or ultrasound. He states that she does have an appointment with OB in 2 days for ultrasound. She denies any other symptoms. REVIEW OF SYSTEMS: Constitutional: Positive for decreased appetite. Denies fever, chills. Eyes: Denies eye pain Ears, Nose, Mouth, & Throat: Denies earache Cardiovascular: Denies chest pain Respiratory: Denies shortness of breath Gastrointestinal: Positive for nausea and decreased appetite. Denies vomiting, diarrhea, hematochezia, melena Genitourinary: Denies hematuria, vaginal bleeding, vaginal discharge Skin:Denies a rash Neurological: Denies blurred vision numbness, tingling, weakness Psychiatric: Denies depression PAST MEDICAL HISTORY: As per history of present illness and as reviewed below otherwise noncontributory. SURGICAL HISTORY: As per history of present illness and as reviewed below otherwise noncontributory. LMP: Approximately 5 to 6 weeks ago SOCIAL HISTORY: As per history of present illness and as reviewed below otherwise noncontributory. FAMILY HISTORY: As per history of present illness and as reviewed below otherwise noncontributory. EXAMINATION OF ORGAN SYSTEMS/BODY AREAS: Constitutional: Blood pressure was 116/78, heart rate 78, respiratory 16 with an oxygen saturation of 10 percent on room air. Temperature 36.3 General: Overall well-appearing young woman who is in no acute distress. Psychiatric: Appropriate mood and affect. Eyes: No scleral icterus or conjunctival erythema ENMT: Moist mucous membranes. No pharyngeal erythema Cardiovascular: Regular, rate, and rhythm. No gallops, murmurs, or rubs. Bilateral upper extremity pulses symmetric and intact. No peripheral edema. No JVD. Respiratory: Lungs clear to auscultation bilaterally. No wheezes, rales, or rhonchi. Gastrointestinal: Soft, non-tender, non-distended. Normoactive bowel sounds Genitourinary: No suprapubic tenderness no CVA tenderness Musculoskeletal: Normal range of motion. Skin: No lesions or abrasions. Neurological: Alert, GCS 15 MEDICAL DECISION MAKING AND COURSE IN THE ED WITH INTERPRETATION/REVIEW OF DIAGNOSTIC STUDIES: This is a 19-year-old woman in who is approximately 5 to 6 weeks gestation who comes to the emergency department with decreased appetite and nausea who was told that she may have had a miscarriage. At this time I did perform a bedside ultrasound which did not reveal any obvious intrauterine however there was endometrial thickening. There is no free fluid in the pelvis. Will obtain a transvaginal ultrasound. We will provide the patient with Compazine and Benadryl for nausea relief and reevaluate for p.o. toleration. We will obtain labs including CBC, CMP, quantitative hCG and urinalysis. We will provide the patient with 1 L of D5 normal saline. Laboratory: CBC reveals a mild white count at 11.04 with normal indices. CMP reveals mild elevation in AST at 39 and ALT of 81 otherwise unremarkable. Quantitative hCG is 21,755 increased from 5000. Urinalysis was a clean catch and was negative for leukocyte esterase, negative for nitrites, and negative for blood. Interpretation: Negative. There is a significant amount of ketonuria The radiological images were viewed by myself along with reading the report from the radiologist. Transvaginal ultrasound reveals a single live intrauterine gestation at approximately 5 weeks 6 days. Patient was able to tolerate p.o. I did discuss her at this time that she does have a single live intrauterine . I discussed with her importance of follow-up with her auto cleaner. She was amenable to discharge at this time and had no further questions. I did provide her with a prescription for doxylamine and pyridoxine. DISPOSITION: The patient was discharged home in stable condition. The patient will follow up with OB at her scheduled appointment CONDITION: Fair PROCEDURES: None FINAL IMPRESSION(S)/DIAGNOSES: 1. Acute nausea likely secondary to 2. Single live intrauterine gestation Omari De La Vega M.D. Lower Abdomen Pain Score (Numeric/FACES): 7 - Related Data Allergies Allergy/AdvReac Type Severity Reaction Status Date / Time amoxicillin Allergy Hives Verified 07/24/20 00:44 Home Meds: Home Meds No122/Iron/Folic Acid [ Multi Tablet] 1 tab PO DAILY 06/16/20 [History] Doxylamine Succinate [Wal-Josef] 25 mg PO Q8HR #21 tablet 07/24/20 [Rx] Pyridoxine HCl [Vitamin B-6] 25 mg PO Q8HR #21 tablet 07/24/20 [Rx] Past Medical History - Past Health History Medical/Surgical History: Denies Medical/Surgical History HEENT History: Reports: None Cardiovascular History: Reports: None Respiratory History: Reports: None Gastrointestinal History: Reports: None Genitourinary History: Reports: None UROGYNAECOLOGIST History: Reports: Therapeutic Other UROGYNAECOLOGIST History: IUDsx removal Musculoskeletal History: Reports: Other (See Below) Other Musculoskeletal History: 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) Neurological History: Reports: Seizure Other Neuro History: 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", none since age 12 Psychiatric History: Reports: Anxiety, Depression Endocrine/Metabolic History: Reports: None Insulin Pump Model and Tenant Selector: None Hematologic History: Reports: None Immunologic History: Reports: None Oncologic (Cancer) History: Reports: None Dermatologic History: Reports: None - Infectious Disease History Infectious Disease History: Reports: None - Past Surgical History Head Surgeries/Procedures: Reports: None HEENT Surgical History: Reports: Myringotomy w Tube(s) Cardiovascular Surgical History: Reports: None Respiratory Surgical History: Reports: None GI Surgical History: Reports: None Endocrine Surgical History: Reports: None Neurological Surgical History: Reports: None Other Musculoskeletal Surgeries/Procedures:: hx lt hip surgery with plate and screws Oncologic Surgical History: Reports: None Dermatological Surgical History: Reports: Other (See Below) Social & Family History - Family History Family Medical History: No Pertinent Family History - Tobacco Use Tobacco Use Status *Q: Never Tobacco User - Caffeine Use Caffeine Use: Reports: None - Recreational Drug Use Recreational Drug Use: Yes Other Recreational Drug Type: prior to was using marijuana daily ED ROS GENERAL - Review of Systems Review Of Systems: See Below ED EXAM, GENERAL - Physical Exam Exam: See Below Course - Vital Signs Last Recorded V/S: Last Vital Signs Temp 36.3 C 07/24/20 00:23 Pulse 84 07/24/20 03:13 Resp 12 07/24/20 03:13 BP 117/79 07/24/20 03:13 Pulse Ox 97 07/24/20 03:13 - Orders/Labs/Meds Labs: Laboratory Tests 07/24/20 07/24/20 07/24/20 Range/Units 01:00 01:00 01:00 WBC 11.04 H (4.0-11.0) K/uL RBC 4.68 (4.30-5.90) M/uL Hgb 13.5 (12.0-16.0) g/dL Hct 40.1 (36.0-46.0) % MCV 85.7 (80.0-98.0) fL MCH 28.8 (27.0-32.0) pg MCHC 33.7 (31.0-37.0) g/dL RDW Std Deviation 41.2 (28.0-62.0) fl RDW Coeff of Nannette 13 (11.0-15.0) % Plt Count 298 (150-400) K/uL MPV 10.40 (7.40-12.00) fL Neut % (Auto) 70.9 (48.0-80.0) % Lymph % (Auto) 18.8 (16.0-40.0) % Cowley % (Auto) 9.5 (0.0-15.0) % Eos % (Auto) 0.5 (0.0-7.0) % Baso % (Auto) 0.3 (0.0-1.5) % Neut # (Auto) 7.8 H (1.4-5.7) K/uL Lymph # (Auto) 2.1 (0.6-2.4) K/uL Cowley # (Auto) 1.1 H (0.0-0.8) K/uL Eos # (Auto) 0.1 (0.0-0.7) K/uL Baso # (Auto) 0.0 (0.0-0.1) K/uL Sodium 138 (136-145) mmol/L Potassium 3.5 (3.5-5.1) mmol/L Chloride 101 (98-107) mmol/L Carbon Dioxide 24.1 (21.0-32.0) mmol/L BUN 11 (7.0-18.0) mg/dL Creatinine 0.9 (0.6-1.0) mg/dL Est Cr Clr Drug Dosing TNP Estimated GFR (MDRD) > 60.0 ml/min Glucose 88 (74-106) mg/dL Calcium 9.6 (8.5-10.1) mg/dL Total Bilirubin 1.0 (0.2-1.0) mg/dL AST 39 H (15-37) IU/L ALT 81 H (14-63) IU/L Alkaline Phosphatase 81 (46-116) U/L Total Protein 9.2 H (6.4-8.2) g/dL Albumin 4.4 (3.4-5.0) g/dL Globulin 4.8 H (2.6-4.0) g/dL Albumin/Globulin Ratio 0.9 (0.9-1.6) HCG, Quant 69957.0 mIU/mL Urine Color DARK YELLOW Urine Appearance CLEAR Urine pH 5.5 (5.0-8.0) Ur Specific Damar >= 1.030 (1.001-1.035) Urine Protein NEGATIVE (NEGATIVE) mg/dL Urine Glucose (UA) NEGATIVE (NEGATIVE) mg/dL Urine Ketones 40 H (NEGATIVE) mg/dL Urine Occult Blood NEGATIVE (NEGATIVE) Urine Nitrite NEGATIVE (NEGATIVE) Urine Bilirubin SMALL H (NEGATIVE) Urine Ictotest NEGATIVE Urine Urobilinogen 0.2 (<2.0) EU/dL Ur Leukocyte Esterase NEGATIVE (NEGATIVE) Urine HCG, Qual (NEGATIVE) 07/24/20 Range/Units 01:00 WBC (4.0-11.0) K/uL RBC (4.30-5.90) M/uL Hgb (12.0-16.0) g/dL Hct (36.0-46.0) % MCV (80.0-98.0) fL MCH (27.0-32.0) pg MCHC (31.0-37.0) g/dL RDW Std Deviation (28.0-62.0) fl RDW Coeff of Nannette (11.0-15.0) % Plt Count (150-400) K/uL MPV (7.40-12.00) fL Neut % (Auto) (48.0-80.0) % Lymph % (Auto) (16.0-40.0) % Cowley % (Auto) (0.0-15.0) % Eos % (Auto) (0.0-7.0) % Baso % (Auto) (0.0-1.5) % Neut # (Auto) (1.4-5.7) K/uL Lymph # (Auto) (0.6-2.4) K/uL Cowley # (Auto) (0.0-0.8) K/uL Eos # (Auto) (0.0-0.7) K/uL Baso # (Auto) (0.0-0.1) K/uL Sodium (136-145) mmol/L Potassium (3.5-5.1) mmol/L Chloride (98-107) mmol/L Carbon Dioxide (21.0-32.0) mmol/L BUN (7.0-18.0) mg/dL Creatinine (0.6-1.0) mg/dL Est Cr Clr Drug Dosing Estimated GFR (MDRD) ml/min Glucose (74-106) mg/dL Calcium (8.5-10.1) mg/dL Total Bilirubin (0.2-1.0) mg/dL AST (15-37) IU/L ALT (14-63) IU/L Alkaline Phosphatase (46-116) U/L Total Protein (6.4-8.2) g/dL Albumin (3.4-5.0) g/dL Globulin (2.6-4.0) g/dL Albumin/Globulin Ratio (0.9-1.6) HCG, Quant mIU/mL Urine Color Urine Appearance Urine pH (5.0-8.0) Ur Specific Damar (1.001-1.035) Urine Protein (NEGATIVE) mg/dL Urine Glucose (UA) (NEGATIVE) mg/dL Urine Ketones (NEGATIVE) mg/dL Urine Occult Blood (NEGATIVE) Urine Nitrite (NEGATIVE) Urine Bilirubin (NEGATIVE) Urine Ictotest Urine Urobilinogen (<2.0) EU/dL Ur Leukocyte Esterase (NEGATIVE) Urine HCG, Qual POSITIVE (NEGATIVE) Meds: Medications Discontinued Medications Generic Name Dose Route Start Last Admin Trade Name Samina PRN Reason Stop Dose Admin Diphenhydramine HCl 25 mg 07/24/20 00:51 07/24/20 01:06 Benadryl IVPUSH 07/24/20 00:52 25 mg ONETIME ONE Administration Diphenhydramine HCl 25 mg 07/24/20 01:35 07/24/20 01:45 Benadryl IVPUSH 07/24/20 01:36 25 mg ONETIME ONE Administration Dextrose/Sodium Chloride 1,000 mls @ 999 mls/hr 07/24/20 01:00 07/24/20 01:05 Dextrose 5%-Normal Saline IV 999 mls/hr ASDIRECTED JORGE Administration Prochlorperazine Edisylate 10 mg 07/24/20 00:50 07/24/20 01:06 Compazine IVPUSH 07/24/20 00:51 10 mg ONETIME ONE Administration Departure - Departure Time of Disposition: 03:10 Disposition: Home, Self-Care 01 Condition: Fair Clinical Impression: Hyperemesis arising during - Discharge Information *PRESCRIPTION DRUG MONITORING PROGRAM REVIEWED*: No *COPY OF PRESCRIPTION DRUG MONITORING REPORT IN PATIENT JOSEY: No Prescriptions: Pyridoxine HCl [Vitamin B-6] 25 mg PO Q8HR #21 tablet Doxylamine Succinate [Wal-Josef] 25 mg PO Q8HR #21 tablet Instructions: Hyperemesis Gravidarum Referrals: Cedrick Griffith MD [Primary Care Provider] - Forms: ED Department Discharge Additional Instructions: Evaluate today on an emergent basis. At this time your is in the uterus at approximately 5 weeks gestation. You were a little dehydrated today. We did provide you with fluids. I did prescribe you pyridoxine and doxylamine which can be used at home every 8 hours for nausea relief. Please follow-up with auto cleaner at your scheduled appointment. Return if you have any new or worsening symptoms. [facility] [address] [place] [id number] [facility] [address] [place] [id number] The patient is informed of any results of their evaluation and diagnostic workup and all questions are answered. They are given discharge instructions and return precautions. The patient is stable for discharge. The patient states they understand and agree with the plan and that they will return if their symptoms get worse or if they have any new concerns. The following information is given to patients seen in the emergency department who are being discharged to home. This information is to outline your options for follow-up care. We provide all patients seen in our emergency department with a follow-up referral. The need for follow-up, as well as the timing and circumstances, are variable depending upon the specifics of your emergency department visit. If you don't have a primary care physician on staff, we will provide you with a referral. We always advise you to contact your personal physician following an emergency department visit to inform them of the circumstance of the visit and for follow-up with them and/or the need for any referrals to a consulting specialist. The emergency department will also refer you to a specialist when appropriate. This referral assures that you have the opportunity for follow-up care with a specialist. All of these measure are taken in an effort to provide you with optimal care, which includes your follow-up. Under all circumstances we always encourage you to contact your private physician who remains a resource for coordinating your care. When calling for follow-up care, please make the office aware that this follow-up is from your recent emergency room visit. If for any reason you are refused follow-up, please contact the [facility] Emergency Department at and asked to speak to the emergency department charge nurse. Sepsis Event Note (ED) - Evaluation Sepsis Screening Result: No Definite Risk
[2020-07-24 03:14] VITALS: BP 117/79; PULSE 84
== END 2020-07-24 03:15 | disposition home or self-care (01) ==
LOC: MW.ED 23:35
DX: O21.9 Vomiting of pregnancy, unspecified (principal); Z88.0 Allergy status to penicillin; Z3A.01 Less than 8 weeks gestation of pregnancy
CPT/HCPCS: 36415; 76817; 80053; 81003; 81025; 84702; 85025; 96374; 96375; 96376; 99284; J0780; J1200; J7042; 99283

== ENCOUNTER 2020-10-05 02:09 | Emergency (ER) | payer MEDICAID ==
[2020-10-05] MEDS ORDERED: Sodium Chloride 0.9% 1,000 ML IV ONE (03:48)
[2020-10-05] MEDS ORDERED: Ondansetron 4 MG/2 ML SDV IVPUSH ONE (03:48)
[2020-10-05] MEDS ORDERED: Sodium Chloride 0.9% 10 ML Syringe FLUSH PRN (03:48)
[2020-10-05] MEDS ORDERED: Sodium Chloride 0.9% 2.5 ML Syringe FLUSH PRN (03:48)
[2020-10-05 04:22] LABS: BLOOD UREA NITROGEN,BUN 7 mg/dL (7.0-18.0); CARBON DIOXIDE,CO2 22.9 mmol/L (21.0-32.0); CHLORIDE,CL 104 mmol/L (98-107); GLUCOSE RANDOM 72 mg/dL (74-106); POTASSIUM,K 3.8 mmol/L (3.5-5.1); SODIUM,NA 137 mmol/L (136-145)
[2020-10-05] MEDS ORDERED: cefTRIAXone 1 GM in Premix Bag 1 BAG IV ONE (04:50)
--- NOTE | 2020-10-05 04:56 | EDM.PDOC ---
ED HPI GENERAL MEDICAL PROBLEM - General Chief Complaint: PROBATION COUNSELOR Problem Stated Complaint: 16 WEEKS PREG; UNUSUAL DISCHARGE Time Seen by Provider: 10/05/20 03:32 - History of Present Illness INITIAL COMMENTS - FREE TEXT/NARRATIVE: HISTORY AND PHYSICAL: History of present illness: 20-year-old 3 para 0 female who is 16 weeks by date and by ultrasound who presents ER today secondary to vaginal spotting that started earlier today. Patient also complains of nausea vomiting and decreased p.o. intake x1 day. Patient has a recent fevers, shakes, chills. Patient denies any dysuria, frequency, urgency. Patient denies any chest pain or shortness of breath. Patient has any abdominal pain or cramping. Patient reports that she is followed by Dr. tariq for her OB care. Review of systems: As per history of present illness and below otherwise all systems reviewed and negative. Past medical history: As per history of present illness and as reviewed below otherwise noncontributory. Surgical history: As per history of present illness and as reviewed below otherwise noncontributory. Social history: No reported history of drug or alcohol abuse. Family history: As per history of present illness and as reviewed below otherwise noncontributory. Physical exam: This patient was seen and evaluated during the 2019 SARS-CoV-2 novel coronavirus pandemic period. Community viral transmission is ongoing at time of this encounter and the emergency department is operating under pandemic response procedures. Constitutional: Patient is oriented to person, place, and time. Appears well- developed and well-nourished. No distress. HEENT: Moist mucous membranes Head: Normocephalic and atraumatic Eyes: Right eye exhibits no discharge. Left eye exhibits no discharge. No scleral icterus Neck: Normal range of motion. No tracheal deviation present. Cardiovascular: Normal rate and regular rhythm. Pulmonary: Effort normal, no respiratory distress. Abdominal: No distention Musculoskeletal: Normal range of motion Neurologic: Alert and oriented to person, place and time. Skin: [place], warm and dry. Psychiatric: Normal mood and affect. Behavior is normal. Judgment and thought content normal. Nursing note and vital signs have been reviewed Pelvic exam reveals os closed. No cervical motion tenderness. No adnexal masses or tenderness. No bleeding in the vault. Diagnostics: heart tones noted at 140 bpm. Therapeutics: NSS x1 L Zofran 4 mg IV Rocephin 1 g IV Assessment and plan: This is a 20-year-old female who presents ER today secondary to vaginal bleeding while at 16 weeks. Patient's heart tones were normal. Patient has had a normal ultrasound in the past with verify dates. Patient is complaining of nausea vomiting so she has been given 1 L of NSS and Zofran and feels much improved. Patient reports that her OB doctor has not wanted her to be on any antiemetic medications for her nausea and vomiting in the past so we will continue doing that and will have her see her OB doctor for further recommendations for nausea and vomiting. Patient will get started on Keflex 500 mg 3 times a day for 7 days to treat a possible UTI as a source. Reassessment at the time of disposition demonstrates that the patient is in no acute distress. The patient has remained stable throughout the entire ED visit and is without objective evidence for acute process requiring urgent intervention or hospitalization. The patient is stable for discharge, counseling is provided as documented above, discussed symptomatic treatment and specific conditions for return. I have spoken with the patient/caregiver and discussed todays findings, in addition to providing specific details for the plan of care. Questions are answered and there is agreement with the plan. Definitive disposition and diagnosis as appropriate pending reevaluation and review of above. Abdomen Pain Score (Numeric/FACES): 7 - Related Data Allergies Allergy/AdvReac Type Severity Reaction Status Date / Time amoxicillin Allergy Hives Verified 10/05/20 03:00 Home Meds: Home Meds No122/Iron/Folic Acid [ Multi Tablet] 1 tab PO DAILY 06/16/20 [History] cephALEXin [Keflex] 500 mg PO Q8H #21 cap 10/05/20 [Rx] Past Medical History - Past Health History Medical/Surgical History: Denies Medical/Surgical History HEENT History: Reports: None Cardiovascular History: Reports: None Respiratory History: Reports: None Gastrointestinal History: Reports: None Genitourinary History: Reports: None PROBATION COUNSELOR History: Reports: Therapeutic Other PROBATION COUNSELOR History: IUDsx removal Musculoskeletal History: Reports: Other (See Below) Other Musculoskeletal History: Avascular necrosis of the right hip (Vtll-Ttoez-Ewfpuip Disease) Neurological History: Reports: Seizure Other Neuro History: 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", none since age 12 Psychiatric History: Reports: Anxiety, Depression Endocrine/Metabolic History: Reports: None Insulin Pump Model and Director Of Public Safety: None Hematologic History: Reports: None Immunologic History: Reports: None Oncologic (Cancer) History: Reports: None Dermatologic History: Reports: None - Infectious Disease History Infectious Disease History: Reports: None - Past Surgical History Head Surgeries/Procedures: Reports: None HEENT Surgical History: Reports: Myringotomy w Tube(s) Cardiovascular Surgical History: Reports: None Respiratory Surgical History: Reports: None GI Surgical History: Reports: None Endocrine Surgical History: Reports: None Neurological Surgical History: Reports: None Other Musculoskeletal Surgeries/Procedures:: hx lt hip surgery with plate and screws Oncologic Surgical History: Reports: None Dermatological Surgical History: Reports: Other (See Below) Social & Family History - Family History Family Medical History: No Pertinent Family History - Caffeine Use Caffeine Use: Reports: None - Recreational Drug Use Recreational Drug Use: No ED ROS GENERAL - Review of Systems Review Of Systems: See Below ED EXAM, GENERAL - Physical Exam Exam: See Below Course - Vital Signs Last Recorded V/S: Last Vital Signs Temp 97.5 F 10/05/20 03:01 Pulse 86 10/05/20 03:01 Resp 18 10/05/20 03:01 BP 108/77 10/05/20 03:01 Pulse Ox 97 10/05/20 03:01 - Orders/Labs/Meds Orders: Active Orders 24 hr Category Date Time Status Heart Tones [RC] ASDIRECTED Care 10/05/20 02:51 Active Sodium Chloride 0.9% [Saline Flush] Med 10/05/20 03:48 Active 10 ml FLUSH ASDIRECTED PRN Sodium Chloride 0.9% [Saline Flush] Med 10/05/20 03:48 Active 2.5 ml FLUSH ASDIRECTED PRN cefTRIAXone [Rocephin in Dextrose,Iso-Osm 1 GM/50 ML] 1 Med 10/05/20 04:50 Ordered gm Premix Bag 1 bag IV ONETIME Saline Lock Insert [OM.PC] Stat Oth 10/05/20 03:48 Ordered Medication Orders Ceftriaxone Sodium/Dextrose 1 (gm/ Premix) 50 mls @ 100 mls/hr IV ONETIME ONE Stop: 10/05/20 05:19 Sodium Chloride (Sodium Chloride 0.9% 10 Ml Syringe) 10 ml FLUSH ASDIRECTED PRN PRN Reason: Keep Vein Open Sodium Chloride (Sodium Chloride 0.9% 2.5 Ml Syringe) 2.5 ml FLUSH ASDIRECTED PRN PRN Reason: Keep Vein Open Labs: Laboratory Tests 10/05/20 10/05/20 10/05/20 Range/Units 02:50 03:50 03:50 WBC 8.95 (4.0-11.0) K/uL RBC 4.14 L (4.30-5.90) M/uL Hgb 12.2 (12.0-16.0) g/dL Hct 36.0 (36.0-46.0) % MCV 87.0 (80.0-98.0) fL MCH 29.5 (27.0-32.0) pg MCHC 33.9 (31.0-37.0) g/dL RDW Std Deviation 42.9 (28.0-62.0) fl RDW Coeff of Nannette 14 (11.0-15.0) % Plt Count 222 (150-400) K/uL MPV 11.00 (7.40-12.00) fL Neut % (Auto) 64.2 (48.0-80.0) % Lymph % (Auto) 24.7 (16.0-40.0) % Desha % (Auto) 10.4 (0.0-15.0) % Eos % (Auto) 0.6 (0.0-7.0) % Baso % (Auto) 0.1 (0.0-1.5) % Neut # (Auto) 5.8 H (1.4-5.7) K/uL Lymph # (Auto) 2.2 (0.6-2.4) K/uL Desha # (Auto) 0.9 H (0.0-0.8) K/uL Eos # (Auto) 0.1 (0.0-0.7) K/uL Baso # (Auto) 0.0 (0.0-0.1) K/uL Nucleated RBC % 0.0 /100WBC Nucleated RBCs # 0 K/uL Sodium 137 (136-145) mmol/L Potassium 3.8 (3.5-5.1) mmol/L Chloride 104 (98-107) mmol/L Carbon Dioxide 22.9 (21.0-32.0) mmol/L BUN 7 (7.0-18.0) mg/dL Creatinine 0.7 (0.6-1.0) mg/dL Est Cr Clr Drug Dosing 101.39 mL/min Estimated GFR (MDRD) > 60.0 ml/min Glucose 72 L (74-106) mg/dL Calcium 9.2 (8.5-10.1) mg/dL Total Bilirubin 0.1 L (0.2-1.0) mg/dL AST 13 L (15-37) IU/L ALT 16 (14-63) IU/L Alkaline Phosphatase 66 (46-116) U/L Total Protein 7.1 (6.4-8.2) g/dL Albumin 3.1 L (3.4-5.0) g/dL Globulin 4.0 (2.6-4.0) g/dL Albumin/Globulin Ratio 0.8 L (0.9-1.6) Urine Color YELLOW Urine Appearance CLOUDY Urine pH 6.0 (5.0-8.0) Ur Specific [place] 1.025 (1.001-1.035) Urine Protein NEGATIVE (NEGATIVE) mg/dL Urine Glucose (UA) NEGATIVE (NEGATIVE) mg/dL Urine Ketones NEGATIVE (NEGATIVE) mg/dL Urine Occult Blood TRACE-INTACT H (NEGATIVE) Urine Nitrite POSITIVE H (NEGATIVE) Urine Bilirubin NEGATIVE (NEGATIVE) Urine Urobilinogen 0.2 (<2.0) EU/dL Ur Leukocyte Esterase TRACE H (NEGATIVE) Urine RBC 0-3 (0-2/HPF) Urine WBC 5-9 (0-5/HPF) Ur Epithelial Cells MODERATE (NONE-FEW) Amorphous Sediment LIGHT (NEGATIVE) Urine Bacteria 4+ H (NEGATIVE) Urine Mucus LIGHT (NONE-MOD) Meds: Medications Generic Name Dose Route Start Last Admin Trade Name Freq PRN Reason Stop Dose Admin Ceftriaxone Sodium/Dextrose 1 50 mls @ 100 mls/hr 10/05/20 04:50 gm/ Premix IV 10/05/20 05:19 ONETIME ONE Sodium Chloride 10 ml 10/05/20 03:48 Sodium Chloride 0.9% 10 Ml Syringe FLUSH ASDIRECTED PRN Keep Vein Open Sodium Chloride 2.5 ml 10/05/20 03:48 Sodium Chloride 0.9% 2.5 Ml Syringe FLUSH ASDIRECTED PRN Keep Vein Open Discontinued Medications Generic Name Dose Route Start Last Admin Trade Name Hangq PRN Reason Stop Dose Admin Sodium Chloride 1,000 mls @ 999 mls/hr 10/05/20 03:48 10/05/20 03:58 Normal Saline IV 10/05/20 04:48 999 mls/hr .Bolus ONE Administration Ondansetron HCl 4 mg 10/05/20 03:48 10/05/20 03:58 Ondansetron 4 Mg/2 Ml Sdv IVPUSH 10/05/20 03:49 4 mg ONETIME ONE Administration Departure - Departure Time of Disposition: 04:54 Disposition: Home, Self-Care 01 Condition: Good Clinical Impression: Threatened miscarriage, Urinary tract infection - Discharge Information Instructions: Threatened Miscarriage, Urinary Tract Infection, Adult, [id number] Referrals: Nehal Hewitt INTENSIVE CARE UNIT REGISTERED NURSE [Primary Care Provider] - Additional Instructions: You were seen and evaluated in the ER today secondary to vaginal spotting. Your exam in the emergency department today is normal. Your blood tests were all within normal limits. Urinalysis reveals that he might have an early urinary tract infection. You have been given a dose of IV Rocephin here in the ED as well as 1 L of normal saline to help you with dehydration. Will be sent home with a prescription for Keflex 500 mg 3 times a day for 7 days. Please make an appointment to see your OB doctor to further discuss medications that she would recommend for your nausea and vomiting. The following information is given to patients seen in the emergency department who are being discharged to home. This information is to outline your options for follow-up care. We provide all patients seen in our emergency department with a follow-up referral. The need for follow-up, as well as the timing and circumstances, are variable depending upon the specifics of your emergency department visit. If you don't have a primary care physician on staff, we will provide you with a referral. We always advise you to contact your personal physician following an emergency department visit to inform them of the circumstance of the visit and for follow-up with them and/or the need for any referrals to a consulting specialist. The emergency department will also refer you to a specialist when appropriate. This referral assures that you have the opportunity for follow-up care with a specialist. All of these measure are taken in an effort to provide you with optimal care, which includes your follow-up. Under all circumstances we always encourage you to contact your private physician who remains a resource for coordinating your care. When calling for follow-up care, please make the office aware that this follow-up is from your recent emergency room visit. If for any reason you are refused follow-up, please contact the [facility] Emergency Department at and asked to speak to the emergency department charge nurse. [facility] - Primary Care [address] [place] [id number] [facility] [address] [place] [id number] Sepsis Event Note (ED) - Evaluation Sepsis Screening Result: No Definite Risk - Focused Exam Vital Signs: Vital Signs Temp Pulse Resp BP Pulse Ox 10/05/20 03:01 97.5 F 86 18 108/77 97 - My Orders Last 24 Hours: My Active Orders 10/05/20 02:51 Heart Tones [RC] ASDIRECTED 10/05/20 03:48 Sodium Chloride 0.9% [Saline Flush] 10 ml FLUSH ASDIRECTED PRN Sodium Chloride 0.9% [Saline Flush] 2.5 ml FLUSH ASDIRECTED PRN Saline Lock Insert [OM.PC] Stat 10/05/20 04:50 cefTRIAXone [Rocephin in Dextrose,Iso-Osm 1 GM/50 ML] 1 gm Premix Bag 1 bag IV ONETIME - Assessment/Plan Last 24 Hours: My Active Orders 10/05/20 02:51 Heart Tones [RC] ASDIRECTED 10/05/20 03:48 Sodium Chloride 0.9% [Saline Flush] 10 ml FLUSH ASDIRECTED PRN Sodium Chloride 0.9% [Saline Flush] 2.5 ml FLUSH ASDIRECTED PRN Saline Lock Insert [OM.PC] Stat 10/05/20 04:50 cefTRIAXone [Rocephin in Dextrose,Iso-Osm 1 GM/50 ML] 1 gm Premix Bag 1 bag IV ONETIME
[2020-10-05 05:01] VITALS: BP 113/73; PULSE 72
== END 2020-10-05 05:38 | disposition home or self-care (01) ==
LOC: MW.ED 02:09
DX: O20.0 Threatened abortion (principal); O23.42 Unspecified infection of urinary tract in pregnancy, second trimester; Z88.0 Allergy status to penicillin; Z3A.16 16 weeks gestation of pregnancy
CPT/HCPCS: 36415; 80053; 81001; 85025; 96365; 96375; 99284; J0696; J2405; J7030; 99283

== ENCOUNTER 2020-11-21 13:06 | Emergency (ER) | payer MEDICAID ==
[2020-11-21 13:27] VITALS: BP 112/69; PULSE 80
--- NOTE | 2020-11-21 13:47 | EDM.PDOC ---
ED HPI GENERAL MEDICAL PROBLEM - General Chief Complaint: JEWELRY SORTER Problem Stated Complaint: PT FELL Time Seen by Provider: 11/21/20 13:09 Source of Information: Reports: Patient History Limitations: Reports: No Limitations - History of Present Illness INITIAL COMMENTS - FREE TEXT/NARRATIVE: HISTORY AND PHYSICAL: History of present illness: The patient is a 20-year-old female who presents to the emergency room room with complaints of decreased movement after falling 2 days ago. The patient is 23 weeks . She is . Patient states that she was stepping over a hose and lost her footing and fell landing primarily on her left side. She states that she felt movement 2-3 times last night. Her last meal was last night she has not eaten today. Patient states she has not movement today. Patient denies any other injury from the fall. She denies striking her head. The patient called her JEWELRY SORTER who was concerned that she had put her on doxycycline for sinus infection 3 days ago and this could be a problem. Patient states she woke up feeling much better this morning she has not had any sinus congestion or sinus drainage. She denies fever. Patient denies any fever, chills, headache, change in vision, syncope or near syncope. Denies any chest pain, back pain, shortness of breath or cough. Denies any abdominal pain, nausea, vomiting, diarrhea, constipation or dysuria. Has not noted any blood in urine or stool. Patient has been eating and drinking appropriately. Review of systems: As per history of present illness and below otherwise all systems reviewed and negative. Past medical history: As per history of present illness and as reviewed below otherwise noncontributory. Surgical history: As per history of present illness and as reviewed below otherwise noncontributory. Social history: See social history for further information Family history: As per history of present illness and as reviewed below otherwise noncontr ibutory. Physical exam: General: Well developed and well nourished. Alert and orientated x 3. Nontoxic in appearance and in no acute distress. Vital signs are stable and have been reviewed by me. Nursing notes were reviewed. HEENT: Atraumatic, normocephalic, pupils equal and reactive bilaterally, negative for conjunctival pallor or scleral icterus, mucous membranes moist, TMs normal bilaterally, throat clear, neck supple, nontender, trachea midline. No drooling or trismus noted. No meningeal signs. No hot potato voice noted. Lungs: Clear to auscultation bilaterally. No wheezes, rales, or rhonchi. Chest nontender. Normal work of breathing, no accessory muscles used. Heart: S1S2, regular rate and rhythm without overt murmur, gallops, or rubs. No JVD. No peripheral edema Abdomen: Soft, nondistended, nontender. Normoactive bowel sounds. Negative for masses or costovertebral tenderness. Skin: Intact, warm, dry. No lesions or rashes noted. Hematologic: No petechiae or purpra. Mucosa appropriate color and normal nail bed color and refill. Extremities: Atraumatic, moves all extremities per self without difficulty or deficits, negative for cords or calf pain. Neurovascular unremarkable. Neuro: Awake, alert, oriented. Cranial nerves II through XII unremarkable. Cerebellum unremarkable. Motor and sensory unremarkable throughout. Exam nonfocal. Psychiatric: Mood and affect are appropriate. Normal thought process. Answering questions appropriately. Notes: *This patient was seen and evaluated during the 2019 SARS-CoV-2 novel coronavirus pandemic period. Community viral transmission is ongoing at time of this encounter and the emergency department is operating under pandemic response procedures. Examination of mother is negative for injury. We will send mom to OB for evalua tion of fetus. I have talked with the patient about today's findings, in addition to providing specific details for plan of care. Reassessment at the time of disposition demonstrates that the patient is in no acute distress. The patient is stable for discharge, counseling was provided and we discussed in great detail signs and symptoms that would prompt them to return to the Emergency Department. Medication, follow up and supportive care measures were reviewed and discussed. Voices understanding and is agreeable to plan of care. Denies any further questions or concerns at this time. Impression: Fall Plan: 1. You were evaluated today on an emergent basis. Your complaints of fall were evaluated by a physical examination. You were not found to have any injuries. You will be sent to OB for evaluation of the fetus. 2. You can alternate Tylenol and ibuprofen as needed for pain and fever management. 3. We encourage you to follow up with your primary care provider and/or recommended specialist in the next few days for re-evaluation and further care/management. 4. If your symptoms should worsen, new symptoms develop or any of the signs and symptoms we discussed should arise please return to the emergency room or call 911 (if needed). Definitive disposition and diagnosis as appropriate pending reevaluation and review of above. upper abdomen Pain Score (Numeric/FACES): 3 - Related Data Allergies Allergy/AdvReac Type Severity Reaction Status Date / Time amoxicillin Allergy Hives Verified 11/21/20 13:26 Home Meds: Home Meds No122/Iron/Folic Acid [ Multi Tablet] 1 tab PO DAILY 06/16/20 [History] Doxycycline [Vibramycin] 11/21/20 [History] Past Medical History - Past Health History Medical/Surgical History: Denies Medical/Surgical History HEENT History: Reports: None Cardiovascular History: Reports: None Respiratory History: Reports: None Gastrointestinal History: Reports: None Genitourinary History: Reports: None JEWELRY SORTER History: Reports: Therapeutic Other JEWELRY SORTER History: IUDsx removal Musculoskeletal History: Reports: Other (See Below) Other Musculoskeletal History: Avascular necrosis of the right hip (Hlun-Ugezj-Rnggxdf Disease) Neurological History: Reports: Seizure Other Neuro History: 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", none since age 12 Psychiatric History: Reports: Anxiety, Depression Endocrine/Metabolic History: Reports: None Insulin Pump Model and Greaser Helper: None Hematologic History: Reports: None Immunologic History: Reports: None Oncologic (Cancer) History: Reports: None Dermatologic History: Reports: None - Infectious Disease History Infectious Disease History: Reports: None - Past Surgical History Head Surgeries/Procedures: Reports: None HEENT Surgical History: Reports: Myringotomy w Tube(s) Cardiovascular Surgical History: Reports: None Respiratory Surgical History: Reports: None GI Surgical History: Reports: None Endocrine Surgical History: Reports: None Neurological Surgical History: Reports: None Other Musculoskeletal Surgeries/Procedures:: hx lt hip surgery with plate and screws Oncologic Surgical History: Reports: None Dermatological Surgical History: Reports: Other (See Below) Social & Family History - Family History Family Medical History: No Pertinent Family History - Tobacco Use Tobacco Use Status *Q: Never Tobacco User - Caffeine Use Caffeine Use: Reports: Coffee - Recreational Drug Use Recreational Drug Use: No ED ROS GENERAL - Review of Systems Review Of Systems: Comprehensive ROS is negative, except as noted in HPI. ED EXAM - Physical Exam Exam: See Below (See dictation) Course - Vital Signs Last Recorded V/S: Last Vital Signs Temp 97.8 F 11/21/20 13:20 Pulse 80 11/21/20 13:20 Resp 20 11/21/20 13:20 BP 112/69 11/21/20 13:20 Pulse Ox 98 11/21/20 13:20 Departure - Departure Time of Disposition: 14:00 Disposition: Still A Patient 30 Condition: Good Clinical Impression: Fall Qualifiers: Encounter type: initial encounter Qualified Code(s): W19.XXXA - Unspecified fall, initial encounter - Discharge Information *PRESCRIPTION DRUG MONITORING PROGRAM REVIEWED*: Not Applicable *COPY OF PRESCRIPTION DRUG MONITORING REPORT IN PATIENT JOSEY: Not Applicable Referrals: PCP,None [Primary Care Provider] - Forms: ED Department Discharge Additional Instructions: The following information is given to patients seen in the emergency department who are being discharged to home. This information is to outline your options for follow-up care. We provide all patients seen in our emergency department with a follow-up referral. The need for follow-up, as well as the timing and circumstances, are variable depending upon the specifics of your emergency department visit. If you don't have a primary care physician on staff, we will provide you with a referral. We always advise you to contact your personal physician following an emergency department visit to inform them of the circumstance of the visit and for follow-up with them and/or the need for any referrals to a consulting specialist. The emergency department will also refer you to a specialist when appropriate. This referral assures that you have the opportunity for follow-up care with a specialist. All of these measure are taken in an effort to provide you with optimal care, which includes your follow-up. Under all circumstances we always encourage you to contact your private physician who remains a resource for coordinating your care. When calling for follow-up care, please make the office aware that this follow-up is from your recent emergency room visit. If for any reason you are refused follow-up, please contact the [facility] Emergency Department at and asked to speak to the emergency department charge nurse. [facility] - Primary Care [address] [place] [id number] [address] [place] [address] Plan: 1. You were evaluated today on an emergent basis. Your complaints of fall were evaluated by a physical examination. You were not found to have any injuries. You will be sent to OB for evaluation of the fetus. 2. You can alternate Tylenol and ibuprofen as needed for pain and fever ma nagement. 3. We encourage you to follow up with your primary care provider and/or recommended specialist in the next few days for re-evaluation and further care/management. 4. If your symptoms should worsen, new symptoms develop or any of the signs and symptoms we discussed should arise please return to the emergency room or call 911 (if needed). Sepsis Event Note (ED) - Evaluation Sepsis Screening Result: No Definite Risk
== END 2020-11-21 13:55 | disposition still patient (30) ==
LOC: MW.ED 13:06 → MW.OB 14:42 → MW.ED 14:42
DX: Z04.3 Encounter for examination and observation following other accident (principal); Z88.0 Allergy status to penicillin; Z3A.23 23 weeks gestation of pregnancy
CPT/HCPCS: 99283

== ENCOUNTER 2021-01-08 22:03 | Emergency (ER) | payer MEDICAID ==
[2021-01-08 22:44] VITALS: BP 105/67; PULSE 95
[2021-01-08] MEDS ORDERED: Sodium Chloride 0.9% 10 ML Syringe FLUSH PRN (22:49)
[2021-01-08] MEDS ORDERED: Ondansetron 4 MG/2 ML SDV IVPUSH ONE (22:49)
[2021-01-08] MEDS ORDERED: Sodium Chloride 0.9% 1,000 ML IV ONE (22:49)
[2021-01-08] MEDS ORDERED: Sodium Chloride 0.9% 2.5 ML Syringe FLUSH PRN (22:49)
--- NOTE | 2021-01-08 23:27 | EDM.PDOC ---
ED HPI GENERAL MEDICAL PROBLEM - General Chief Complaint: General Stated Complaint: POSSIBLE COVID, VOMITTING, LOSS OF TASTE, COUGH Time Seen by Provider: 01/08/21 22:41 - History of Present Illness INITIAL COMMENTS - FREE TEXT/NARRATIVE: HISTORY AND PHYSICAL: History of present illness: This is a 20-year-old female who is 2 para 0 with no other past medical history who presents ER today with nausea, vomiting, diarrhea, cough, headache x1 to 2 days. 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 Patient reports did not have a coronavirus vaccination. Patient is approximately 32 weeks by dates. Patient denies any recent fevers, dysuria, frequency, urgency, vaginal bleeding, abdominal pain cramping, hematuria. Patient has any chest pain or shortness of breath. Review of systems: As per history of present illness and below otherwise all systems reviewed and negative. Past medical history: As per history of present illness and as reviewed below otherwise noncontributory. Surgical history: As per history of present illness and as reviewed below otherwise noncontributory. Social history: No reported history of drug abuse. Family history: As per history of present illness and as reviewed below otherwise noncontributory. Physical exam: This patient was seen and evaluated during the 2019 SARS-CoV-2 novel coronavirus pandemic period. Community viral transmission is ongoing at time of this encounter and the emergency department is operating under pandemic response procedures. Constitutional: Patient is oriented to person, place, and time. Appears well- developed and well-nourished. No distress. HEENT: Moist mucous membranes Head: Normocephalic and atraumatic Eyes: Right eye exhibits no discharge. Left eye exhibits no discharge. No scleral icterus Neck: Normal range of motion. No tracheal deviation present. Cardiovascular: Normal rate and regular rhythm. Pulmonary: Effort normal, no respiratory distress. Abd: Soft, gravid, no rebound/guarding, no psoas or obturator signs, no tenderness at Mcberney's point, no Slaughter's sign. Pt does not present with an exam that would be consistent with an acute surgical abdomen at this time, nontender to palpation, gravid abdomen Musculoskeletal: Normal range of motion Neurologic: Alert and oriented to person, place and time. Skin: [place], warm and dry. Psychiatric: Normal mood and affect. Behavior is normal. Judgment and thought content normal. Nursing note and vital signs have been reviewed Diagnostics: CBC, CMP, urinalysis all negative Covid test negative OB at bedside monitoring tocolytic's and baby and reported normal heart tones Therapeutics: NSS x1 L Zofran 4 mg IV Assessment and plan: This is a 20-year-old female who presents ER today secondary to nausea, vomiting, diarrhea, headache, cough and symptoms that were concerning for coronavirus. 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 Patient's labs are all within normal limits. Patient reports that she feels improved after the IV fluids in the Zofran in the ED. Patient had OB come down and evaluated here in the ED and was cleared by the graduate recruiter service here at [facility]. Patient feels comfortable with plan to be discharged home at this time. Patient was given a prescription for Zofran Reassessment at the time of disposition demonstrates that the patient is in no acute distress. The patient has remained stable throughout the entire ED visit and is without objective evidence for acute process requiring urgent intervention or hospitalization. The patient is stable for discharge, counseling is provided as documented above, discussed symptomatic treatment and specific conditions for return. I have spoken with the patient/caregiver and discussed todays findings, in addition to providing specific details for the plan of care. Questions are answered and there is agreement with the plan. Definitive disposition and diagnosis as appropriate pending reevaluation and review of above. 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: 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: Therapeutic Other EXTRACTOR OPERATOR HELPER History: IUDsx removal Musculoskeletal History: Reports: Other (See Below) Other Musculoskeletal History: 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) Neurological History: Reports: Seizure Other Neuro History: 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", none since age 12 Psychiatric History: Reports: Anxiety, Depression Endocrine/Metabolic History: Reports: None Insulin Pump Model and Crusher Wet Ground Mica: None Hematologic History: Reports: None Immunologic History: Reports: None Oncologic (Cancer) History: Reports: None Dermatologic History: Reports: None - Infectious Disease History Infectious Disease History: Reports: None - Past Surgical History Head Surgeries/Procedures: Reports: None HEENT Surgical History: Reports: Myringotomy w Tube(s) Cardiovascular Surgical History: Reports: None Respiratory Surgical History: Reports: None GI Surgical History: Reports: None Endocrine Surgical History: Reports: None Neurological Surgical History: Reports: None Other Musculoskeletal Surgeries/Procedures:: hx lt hip surgery with plate and screws Oncologic Surgical History: Reports: None Dermatological Surgical History: Reports: Other (See Below) Social & Family History - Family History Family Medical History: No Pertinent Family History - Tobacco Use Tobacco Use Status *Q: Never Tobacco User - Caffeine Use Caffeine Use: Reports: Coffee - Recreational Drug Use Recreational Drug Use: No ED ROS GENERAL - Review of Systems Review Of Systems: See Below ED EXAM, GENERAL - Physical Exam Exam: See Below Course - Vital Signs Last Recorded V/S: Last Vital Signs Temp Pulse 95 01/08/21 22:41 Resp 17 01/08/21 22:41 BP 105/67 01/08/21 22:41 Pulse Ox 98 01/08/21 22:41 - Orders/Labs/Meds Orders: Active Orders 24 hr Category Date Time Status Sodium Chloride 0.9% [Saline Flush] Med 01/08/21 22:49 Active 10 ml FLUSH ASDIRECTED PRN Sodium Chloride 0.9% [Saline Flush] Med 01/08/21 22:49 Active 2.5 ml FLUSH ASDIRECTED PRN Saline Lock Insert [OM.PC] Stat Oth 01/08/21 22:49 Ordered Medication Orders Sodium Chloride (Sodium Chloride 0.9% 10 Ml Syringe) 10 ml FLUSH ASDIRECTED PRN PRN Reason: Keep Vein Open Sodium Chloride (Sodium Chloride 0.9% 2.5 Ml Syringe) 2.5 ml FLUSH ASDIRECTED PRN PRN Reason: Keep Vein Open Labs: Laboratory Tests 01/08/21 01/08/21 01/08/21 Range/Units 23:11 23:15 23:15 WBC 8.95 (4.0-11.0) K/uL RBC 3.94 L (4.30-5.90) M/uL Hgb 11.2 L (12.0-16.0) g/dL Hct 33.3 L (36.0-46.0) % MCV 84.5 (80.0-98.0) fL MCH 28.4 (27.0-32.0) pg MCHC 33.6 (31.0-37.0) g/dL RDW Std Deviation 41.2 (28.0-62.0) fl RDW Coeff of Nannette 14 (11.0-15.0) % Plt Count 234 (150-400) K/uL MPV 10.70 (7.40-12.00) fL Neut % (Auto) 72.2 (48.0-80.0) % Lymph % (Auto) 13.4 L (16.0-40.0) % [place] % (Auto) 13.4 (0.0-15.0) % Eos % (Auto) 0.9 (0.0-7.0) % Baso % (Auto) 0.1 (0.0-1.5) % Neut # (Auto) 6.5 H (1.4-5.7) K/uL Lymph # (Auto) 1.2 (0.6-2.4) K/uL [place] # (Auto) 1.2 H (0.0-0.8) K/uL Eos # (Auto) 0.1 (0.0-0.7) K/uL Baso # (Auto) 0.0 (0.0-0.1) K/uL Nucleated RBC % 0.0 /100WBC Nucleated RBCs # 0 K/uL Sodium 137 (136-145) mmol/L Potassium 3.3 L (3.5-5.1) mmol/L Chloride 105 (98-107) mmol/L Carbon Dioxide 22.0 (21.0-32.0) mmol/L BUN 4 L (7.0-18.0) mg/dL Creatinine 0.6 (0.6-1.0) mg/dL Est Cr Clr Drug Dosing 118.29 mL/min Estimated GFR (MDRD) > 60.0 ml/min Glucose 87 (74-106) mg/dL Calcium 8.6 (8.5-10.1) mg/dL Total Bilirubin 0.4 (0.2-1.0) mg/dL AST 23 (15-37) IU/L ALT 20 (14-63) IU/L Alkaline Phosphatase 121 H (46-116) U/L Total Protein 7.1 (6.4-8.2) g/dL Albumin 2.9 L (3.4-5.0) g/dL Globulin 4.2 H (2.6-4.0) g/dL Albumin/Globulin Ratio 0.7 L (0.9-1.6) Lipase 108 (73-393) U/L Urine Color Urine Appearance Urine pH (5.0-8.0) Ur Specific [place] (1.001-1.035) Urine Protein (NEGATIVE) mg/dL Urine Glucose (UA) (NEGATIVE) mg/dL Urine Ketones (NEGATIVE) mg/dL Urine Occult Blood (NEGATIVE) Urine Nitrite (NEGATIVE) Urine Bilirubin (NEGATIVE) Urine Urobilinogen (<2.0) EU/dL Ur Leukocyte Esterase (NEGATIVE) SARS-CoV-2 RNA (MARLA) NEGATIVE (NEGATIVE) 01/09/21 Range/Units 00:09 WBC (4.0-11.0) K/uL RBC (4.30-5.90) M/uL Hgb (12.0-16.0) g/dL Hct (36.0-46.0) % MCV (80.0-98.0) fL MCH (27.0-32.0) pg MCHC (31.0-37.0) g/dL RDW Std Deviation (28.0-62.0) fl RDW Coeff of [place] (11.0-15.0) % Plt Count (150-400) K/uL MPV (7.40-12.00) fL Neut % (Auto) (48.0-80.0) % Lymph % (Auto) (16.0-40.0) % [place] % (Auto) (0.0-15.0) % Eos % (Auto) (0.0-7.0) % Baso % (Auto) (0.0-1.5) % Neut # (Auto) (1.4-5.7) K/uL Lymph # (Auto) (0.6-2.4) K/uL [place] # (Auto) (0.0-0.8) K/uL Eos # (Auto) (0.0-0.7) K/uL Baso # (Auto) (0.0-0.1) K/uL Nucleated RBC % /100WBC Nucleated RBCs # K/uL Sodium (136-145) mmol/L Potassium (3.5-5.1) mmol/L Chloride (98-107) mmol/L Carbon Dioxide (21.0-32.0) mmol/L BUN (7.0-18.0) mg/dL Creatinine (0.6-1.0) mg/dL Est Cr Clr Drug Dosing mL/min Estimated GFR (MDRD) ml/min Glucose (74-106) mg/dL Calcium (8.5-10.1) mg/dL Total Bilirubin (0.2-1.0) mg/dL AST (15-37) IU/L ALT (14-63) IU/L Alkaline Phosphatase (46-116) U/L Total Protein (6.4-8.2) g/dL Albumin (3.4-5.0) g/dL Globulin (2.6-4.0) g/dL Albumin/Globulin Ratio (0.9-1.6) Lipase (73-393) U/L Urine Color YELLOW Urine Appearance HAZY Urine pH 6.5 (5.0-8.0) Ur Specific [place] 1.010 (1.001-1.035) Urine Protein NEGATIVE (NEGATIVE) mg/dL Urine Glucose (UA) NEGATIVE (NEGATIVE) mg/dL Urine Ketones 15 H (NEGATIVE) mg/dL Urine Occult Blood NEGATIVE (NEGATIVE) Urine Nitrite NEGATIVE (NEGATIVE) Urine Bilirubin NEGATIVE (NEGATIVE) Urine Urobilinogen 0.2 (<2.0) EU/dL Ur Leukocyte Esterase NEGATIVE (NEGATIVE) SARS-CoV-2 RNA (MARLA) (NEGATIVE) Meds: Medications Generic Name Dose Route Start Last Admin Trade Name Freq PRN Reason Stop Dose Admin Sodium Chloride 10 ml 01/08/21 22:49 Sodium Chloride 0.9% 10 Ml Syringe FLUSH ASDIRECTED PRN Keep Vein Open Sodium Chloride 2.5 ml 07/19/21 22:49 Sodium Chloride 0.9% 2.5 Ml Syringe FLUSH ASDIRECTED PRN Keep Vein Open Discontinued Medications Generic Name Dose Route Start Last Admin Trade Name Samina PRN Reason Stop Dose Admin Sodium Chloride 1,000 mls @ 999 mls/hr 01/08/21 22:49 01/08/21 23:52 Normal Saline IV 01/08/21 23:49 999 mls/hr .Bolus ONE Administration Ondansetron HCl 4 mg 01/08/21 22:49 01/08/21 23:53 Ondansetron 4 Mg/2 Ml Sdv IVPUSH 01/08/21 22:50 4 mg ONETIME ONE Administration Departure - Departure Time of Disposition: 00:37 Disposition: Home, Self-Care 01 Condition: Good Clinical Impression: Viral illness, Lab test negative for COVID-19 virus, Dehydration, Nausea vomiting and diarrhea Qualifiers: Weeks of gestation: unspecified Qualified Code(s): Z34.90 - Encounter for supervision of normal , unspecified, unspecified trimester - Discharge Information Instructions: Dehydration, Adult, Tzwu-ct-[id number], Nausea and Vomiting, Adult, Care Referrals: Nehal Hewitt [employer]TER [Primary Care Provider] - Forms: ED Department Discharge Additional Instructions: Your seen and evaluated in the ER today secondary to concerns that he might have coronavirus. You have been having nausea vomiting and diarrhea as well as cough which are all symptoms of viruses. Your coronavirus test is negative so you likely have a different virus causing the symptoms. Continue taking plenty of fluids and a bland diet. You will be given a prescription for Zofran to this with your nausea. Please go home and get plenty rest and stay home from work for the next 48 hours. The following information is given to patients seen in the emergency department who are being discharged to home. This information is to outline your options fo r follow-up care. We provide all patients seen in our emergency department with a follow-up referral. The need for follow-up, as well as the timing and circumstances, are variable depending upon the specifics of your emergency department visit. If you don't have a primary care physician on staff, we will provide you with a referral. We always advise you to contact your personal physician following an emergency department visit to inform them of the circumstance of the visit and for follow-up with them and/or the need for any referrals to a consulting specialist. The emergency department will also refer you to a specialist when appropriate. This referral assures that you have the opportunity for follow-up care with a specialist. All of these measure are taken in an effort to provide you with optimal care, which includes your follow-up. Under all circumstances we always encourage you to contact your private physician who remains a resource for coordinating your care. When calling for follow-up care, please make the office aware that this follow-up is from your recent emergency room visit. If for any reason you are refused follow-up, please contact the [facility] Emergency Department at and asked to speak to the emergency department charge nurse. [facility] [address] [place] [id number] [address] Sepsis Event Note (ED) - Evaluation Sepsis Screening Result: No Definite Risk - Focused Exam Vital Signs: Vital Signs Pulse Resp BP Pulse Ox 01/08/21 22:41 95 17 105/67 98 - My Orders Last 24 Hours: My Active Orders 01/08/21 22:49 Sodium Chloride 0.9% [Saline Flush] 10 ml FLUSH ASDIRECTED PRN Sodium Chloride 0.9% [Saline Flush] 2.5 ml FLUSH ASDIRECTED PRN Saline Lock Insert [OM.PC] Stat - Assessment/Plan Last 24 Hours: My Active Orders 01/08/21 22:49 Sodium Chloride 0.9% [Saline Flush] 10 ml FLUSH ASDIRECTED PRN Sodium Chloride 0.9% [Saline Flush] 2.5 ml FLUSH ASDIRECTED PRN Saline Lock Insert [OM.PC] Stat
[2021-01-08 23:39] LABS: BLOOD UREA NITROGEN,BUN 4 mg/dL (7.0-18.0); CHLORIDE,CL 105 mmol/L (98-107); GLUCOSE RANDOM 87 mg/dL (74-106); LIPASE 108 U/L (73-393); POTASSIUM,K 3.3 mmol/L (3.5-5.1); SODIUM,NA 137 mmol/L (136-145)
== END 2021-01-09 00:53 | disposition home or self-care (01) ==
LOC: MW.ED 22:03
DX: O21.9 Vomiting of pregnancy, unspecified (principal); O99.285 Endocrine, nutritional and metabolic diseases complicating the puerperium; E86.0 Dehydration; O99.834 Other infection carrier state complicating childbirth; B34.9 Viral infection, unspecified; Z20.822 Contact with and (suspected) exposure to COVID-19; Z3A.00 Weeks of gestation of pregnancy not specified
CPT/HCPCS: 36415; 59025; 80053; 81003; 83690; 85025; 87635; 96374; 99284; J2405; J7030; U0002

== ENCOUNTER 2021-03-13 04:30 | Inpatient (IN) | payer MEDICAID ==
[2021-03-13] MEDS ORDERED: Acetaminophen 500 MG Tab PO ONE (08:09)
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
[2021-03-13] MEDS ORDERED: Nalbuphine 10 MG/1 ML Vial IVPUSH PRN (08:56)
[2021-03-13] MEDS ORDERED: Methylergonovine 0.2 MG/1 ML Amp IM PRN (08:56)
[2021-03-13] MEDS ORDERED: Misoprostol 200 MCG Tab PO PRN (08:56)
[2021-03-13] MEDS ORDERED: Sodium Chloride 0.9% 10 ML SDV IV PRN (08:56)
[2021-03-13] MEDS ORDERED: Carboprost Tromethamine 250 MCG/1 ML Amp IM PRN (08:56)
[2021-03-13] MEDS ORDERED: Butorphanol 1 MG/ML SDV IVPUSH PRN (08:56)
[2021-03-13] MEDS ORDERED: Tranexamic Acid 1,000 MG in Sodium Chloride 0.9% 100 ML IV PRN (08:56)
[2021-03-13] MEDS ORDERED: Water For Irrigation,Sterile 1,000 ML Container IRR PRN (08:56)
[2021-03-13] MEDS ORDERED: Lidocaine 1% 50 ML MDV INJECT PRN (08:56)
[2021-03-13] MEDS ORDERED: Sodium Chloride 0.9% 2.5 ML Syringe FLUSH PRN (08:56)
[2021-03-13] MEDS ORDERED: Sodium Chloride 0.9% 10 ML Syringe FLUSH PRN (08:56)
[2021-03-13] MEDS ORDERED: Oxytocin/0.9 % Sodium Chloride 30 UNIT/500 ML BAG IV SCH ×2 (09:00→18:00)
[2021-03-13 14:02] LABS: BLOOD UREA NITROGEN,BUN 7 mg/dL (7.0-18.0); CARBON DIOXIDE,CO2 19.6 mmol/L (21.0-32.0); CHLORIDE,CL 104 mmol/L (98-107); GLUCOSE RANDOM 89 mg/dL (74-106); POTASSIUM,K 4.1 mmol/L (3.5-5.1); SODIUM,NA 137 mmol/L (136-145)
[2021-03-13] MEDS: Lactated Ringers 1,000 ML IV SCH ×2 (14:29→15:31)
[2021-03-13] MEDS ORDERED: Ropivacaine HCl/PF 200 ML ONE (15:21)
[2021-03-13] MEDS ORDERED: Bupivacaine 0.25% 10 ML SDV ONE (15:22)
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
[2021-03-13] MEDS ORDERED: ePHEDrine 50 MG/ML SDV IVPUSH PRN (16:08)
--- NOTE | 2021-03-13 16:08 | PCM.SN.2 ---
Time Documentation - Pre-Procedure Checklist Attending Provider Aware: Yes Chart Reviewed: Yes Consent Signed: Yes Labs Reviewed: Yes VS/FHR Reviewed: Yes Patient Identification Confirmation Method: Reports: ID Band Visual, Verbal Patient Pt an Appropriate Candidate for the Planned Anesthesia: Yes Alternatives and Risks of Anesthesia Discussed w Pt/Guardian: Yes - Procedure Procedure Start Date: 03/13/21 Procedure Start Time: 15:[address]: Reports: Blood Pressure, Heart Rate, SPO2 Functional IV: Yes Safety Measures: Reports: Patient Identified, Procedure Verified, Site Verified, Procedure Time Out Patient Position: Reports: Sitting Prep: Reports: Betadine x3, Sterile Drape Local Anesthetic: Reports: Intradermal Wheal w Lidocaine 1% Regional Placement Level: Reports: L4-5 Needle: Reports: 17 g Touhy Approach: Reports: Midline Technique: Reports: PHILIP Plastic Syringe (PHILIP to saline) Parasthesia: Reports: None Fluid Obtained: Reports: None Test Dose Time: 15:37 Test Dose Medication: Reports: Lidocaine 1.5% w Epinephrine 1:200,000 Test Dose Response: Reports: Negative Loading Dose Time: 15:40 Loading Dose Medication: Bupivacaine 0.25% PF 10 ml in 2 separate doses Loading Dose Patient Position: semi-fowlers with CAIT Continuous Infusion Start Time: 15:50 Continuous Infusion Medication: Ropivacaine 0.2% Continuous Infusion Rate: 14 ml/hr Continuous Infusion PCS Bolus Option: 4 ml q 15 min Patient Position Post Placement: Reports: Semi-fowlers/CAIT Post-procedure Pain Level: 0 Level Achieved: T-10 VS and FHR Monitored in Unit Post Placement: Yes Procedure End Date: 03/13/21 Procedure End Time: 16:18 Procedure Comment: Pt. tolerated procedure well
--- NOTE | 2021-03-13 16:09 | PCM.POSTAN ---
POST ANESTHESIA ASSESSMENT - MENTAL STATUS Mental Status: Alert, Oriented - RESPIRATORY Respiratory Status: Respiratory Rate WNL, Airway Patent, O2 Saturation Stable - CARDIOVASCULAR CV Status: Pulse Rate WNL, Blood Pressure Stable - GASTROINTESTINAL GI Status: No Symptoms - POST OP HYDRATION Hydration Status: Adequate & Stable
[2021-03-13] MEDS ORDERED: Ropivacaine 0.2% 2MG/ML 200 ML Bag EPIDUR SCH (16:30)
[2021-03-13] MEDS ORDERED: Terbutaline 1 MG/ML SDV SUBCUT PRN (17:52)
[2021-03-13] MEDS ORDERED: oxyCODONE 5 MG Tab PO PRN (20:39)
[2021-03-13] MEDS ORDERED: Lanolin 100% Cream 7 GM Tube TOP PRN (20:39)
[2021-03-13] MEDS ORDERED: Witch Hazel Medicated Pads 40/Jar TOP PRN (20:39)
[2021-03-13] MEDS ORDERED: Bisacodyl 10 MG Supp RECTAL PRN (20:39)
[2021-03-13] MEDS ORDERED: Benzocaine/Menthol 20%-0.5% Spray 78 GM Cannister TOP PRN (20:39)
[2021-03-13] MEDS ORDERED: Docusate Sodium 100 MG Cap PO PRN (20:39)
[2021-03-13] MEDS ORDERED: Ibuprofen 400 MG Tab PO PRN (20:39)
[2021-03-13] MEDS ORDERED: Acetaminophen 500 MG Tab PO PRN ×2 (20:39)
[2021-03-14] MEDS: Ibuprofen 800 MG Tab PO PRN (02:29)
--- NOTE | 2021-03-14 08:34 | PCM48HPAN ---
Post Anesthesia Note - EVALUATION WITHIN 48HRS OF ANESTHETIC Vital Signs in Normal Range: Yes Patient Participated in Evaluation: Yes Respiratory Function Stable: Yes Airway Patent: Yes Cardiovascular Function Stable: Yes Hydration Status Stable: Yes Pain Control Satisfactory: Yes Nausea and Vomiting Control Satisfactory: Yes Mental Status Recovered: Yes Vital Signs: Last Vital Signs Temp 97.9 F 03/14/21 05:00 Pulse 87 03/14/21 05:00 Resp 16 03/14/21 05:00 BP 138/87 03/14/21 05:00 Pulse Ox 97 03/14/21 05:00
--- NOTE | 2021-03-14 09:54 | PCM.PNPP ---
- General Info Date of Service: 03/14/21 Functional Status: Reports: Pain Controlled - Review of Systems General: Reports: No Symptoms HEENT: Reports: No Symptoms Pulmonary: Reports: No Symptoms Cardiovascular: Reports: No Symptoms Gastrointestinal: Reports: No Symptoms Genitourinary: Reports: No Symptoms Musculoskeletal: Reports: No Symptoms Skin: Reports: No Symptoms Neurological: Reports: No Symptoms Psychiatric: Reports: No Symptoms - General Info Date of Service: 03/14/21 - Patient Data Vital Signs - Most Recent: Last Vital Signs Temp 36.8 C 03/14/21 08:00 Pulse 70 03/14/21 08:00 Resp 14 03/14/21 08:00 BP 114/67 03/14/21 08:00 Pulse Ox 98 03/14/21 08:00 Weight - Most Recent: 64.864 kg I&O - Last 24 Hours: Intake & Output 03/13/21 03/14/21 03/14/21 22:59 06:59 14:59 Intake Total 1000 Balance 1000 Lab Results - Last 24 Hours: Laboratory Results - last 24 hr 03/13/21 03/13/21 03/13/21 Range/Units 12:40 13:00 13:00 WBC 10.16 (4.0-11.0) K/uL RBC 4.21 L (4.30-5.90) M/uL Hgb 10.7 L (12.0-16.0) g/dL Hct 33.0 L (36.0-46.0) % MCV 78.4 L (80.0-98.0) fL MCH 25.4 L (27.0-32.0) pg MCHC 32.4 (31.0-37.0) g/dL RDW Std Deviation 44.8 (28.0-62.0) fl RDW Coeff of Nannette 16 H (11.0-15.0) % Plt Count 248 (150-400) K/uL MPV 11.90 (7.40-12.00) fL Nucleated RBC % 0.0 /100WBC Nucleated RBCs # 0 K/uL Sodium 137 (136-145) mmol/L Potassium 4.1 (3.5-5.1) mmol/L Chloride 104 (98-107) mmol/L Carbon Dioxide 19.6 L (21.0-32.0) mmol/L BUN 7 (7.0-18.0) mg/dL Creatinine 0.7 (0.6-1.0) mg/dL Est Cr Clr Drug Dosing 101.39 mL/min Estimated GFR (MDRD) > 60.0 ml/min Glucose 89 (74-106) mg/dL Calcium 9.2 (8.5-10.1) mg/dL Total Bilirubin 0.5 (0.2-1.0) mg/dL AST 22 (15-37) IU/L ALT 19 (14-63) IU/L Alkaline Phosphatase 183 H (46-116) U/L Total Protein 7.4 (6.4-8.2) g/dL Albumin 2.9 L (3.4-5.0) g/dL Globulin 4.5 H (2.6-4.0) g/dL Albumin/Globulin Ratio 0.6 L (0.9-1.6) SARS-CoV-2 RNA (MARLA) POSITIVE H (NEGATIVE) Blood Type Antibody Screen 03/13/21 03/14/21 Range/Units 13:00 05:51 WBC (4.0-11.0) K/uL RBC (4.30-5.90) M/uL Hgb 8.5 L (12.0-16.0) g/dL Hct 26.0 L (36.0-46.0) % MCV (80.0-98.0) fL MCH (27.0-32.0) pg MCHC (31.0-37.0) g/dL RDW Std Deviation (28.0-62.0) fl RDW Coeff of Nannette (11.0-15.0) % Plt Count (150-400) K/uL MPV (7.40-12.00) fL Nucleated RBC % /100WBC Nucleated RBCs # K/uL Sodium (136-145) mmol/L Potassium (3.5-5.1) mmol/L Chloride (98-107) mmol/L Carbon Dioxide (21.0-32.0) mmol/L BUN (7.0-18.0) mg/dL Creatinine (0.6-1.0) mg/dL Est Cr Clr Drug Dosing mL/min Estimated GFR (MDRD) ml/min Glucose (74-106) mg/dL Calcium (8.5-10.1) mg/dL Total Bilirubin (0.2-1.0) mg/dL AST (15-37) IU/L ALT (14-63) IU/L Alkaline Phosphatase (46-116) U/L Total Protein (6.4-8.2) g/dL Albumin (3.4-5.0) g/dL Globulin (2.6-4.0) g/dL Albumin/Globulin Ratio (0.9-1.6) SARS-CoV-2 RNA (MARLA) (NEGATIVE) Blood Type O POSITIVE Antibody Screen NEGATIVE Med Orders - Current: Current Medications Acetaminophen (Acetaminophen 500 Mg Tab) 500 mg PO Q4H PRN PRN Reason: Pain (mild 1-3) Acetaminophen (Acetaminophen 500 Mg Tab) 1,000 mg PO Q4H PRN PRN Reason: Pain (mild 1-3) Benzocaine/Menthol (Benzocaine/Menthol 20%-0.5% [place] 78 Gm Cannister) 78 gm TOP ASDIRECTED PRN PRN Reason: Perineal Comfort Measure Last Admin: 03/14/21 00:26 Dose: 1 canister Documented by: Bisacodyl (Bisacodyl 10 Mg Supp) 10 mg RECTAL ONETIME PRN PRN Reason: Constipation Docusate Sodium (Docusate Sodium 100 Mg Cap) 100 mg PO Q12H PRN PRN Reason: Constipation Emollient Ointment (Lanolin 100% Cream 7 Gm Tube) 0 gm TOP ASDIRECTED PRN PRN Reason: Sore Nipples Last Admin: 03/14/21 00:26 Dose: 1 tube Documented by: Ibuprofen (Ibuprofen 400 Mg Tab) 400 mg PO Q4H PRN PRN Reason: Pain (mild 1-3) Ibuprofen (Ibuprofen 800 Mg Tab) 800 mg PO Q6H PRN PRN Reason: Cramping Last Admin: 03/14/21 02:29 Dose: 800 mg Documented by: Oxycodone HCl (Oxycodone 5 Mg Tab) 5 mg PO Q2H PRN PRN Reason: Pain (severe 7-10) Sodium Chloride (Sodium Chloride 0.9% 10 Ml Syringe) 10 ml FLUSH ASDIRECTED PRN PRN Reason: Keep Vein Open Sodium Chloride (Sodium Chloride 0.9% 2.5 Ml Syringe) 2.5 ml FLUSH ASDIRECTED PRN PRN Reason: Keep Vein Open Sodium Chloride (Sodium Chloride 0.9% 10 Ml Sdv) 10 ml IV ASDIRECTED PRN PRN Reason: IV Use Witch Lou (Witch Lou Medicated Pads 40/Jar) 1 pad TOP ASDIRECTED PRN PRN Reason: comfort care Last Admin: 03/14/21 00:25 Dose: 1 tub Documented by: Discontinued Medications Acetaminophen (Acetaminophen 500 Mg Tab) 1,000 mg PO ONETIME ONE Stop: 03/13/21 08:10 Last Admin: 03/14/21 07:30 Dose: Not Given Documented by: Bupivacaine HCl (Bupivacaine 0.25% 10 Ml Sdv) Confirm Administered Dose 10 ml .ROUTE .STK-MED ONE Stop: 03/13/21 15:23 Last Admin: 03/14/21 07:31 Dose: Not Given Documented by: Butorphanol Tartrate (Butorphanol 1 Mg/Ml Sdv) 1 mg IVPUSH Q1H PRN PRN Reason: Pain (severe 7-10) Carboprost Tromethamine (Carboprost Tromethamine 250 Mcg/1 Ml Amp) 250 mcg IM ASDIRECTED PRN PRN Reason: Post Hemorrhage Ephedrine Sulfate (Ephedrine 50 Mg/Ml Sdv) 10 mg IVPUSH Q1M PRN PRN Reason: Hypotension Lactated Ringer's (Ringers, Lactated) 1,000 mls @ 150 mls/hr IV ASDIRECTED JORGE Last Admin: 03/13/21 15:31 Dose: 150 mls/hr Documented by: Oxytocin/Sodium Chloride (Oxytocin 30 Unit In Ns 0.9% 500 Ml Premix) 30 unit in 500 mls @ 999 mls/hr IV TITRATE JORGE Tranexamic Acid 1,000 mg/ (Sodium Chloride) 110 mls @ 660 mls/hr IV ONETIME PRN PRN Reason: Bleeding Ropivacaine (Naropin 0.2%) Confirm Administered Dose 200 mls @ as directed .ROUTE .STK-MED ONE Stop: 03/13/21 15:22 Last Admin: 03/14/21 07:31 Dose: Not Given Documented by: Oxytocin/Sodium Chloride (Oxytocin 30 Unit In Ns 0.9% 500 Ml Premix) 30 unit in 500 mls @ 2 mls/hr IV TITRATE JORGE; Protocol Last Admin: 03/13/21 21:05 Dose: 2 munits/min, 2 mls/hr Documented by: Lidocaine HCl (Lidocaine 1% 50 Ml Mdv) 50 ml INJECT ONETIME PRN PRN Reason: Laceration repair Methylergonovine Maleate (Methylergonovine 0.2 Mg/1 Ml Amp) 0.2 mg IM ASDIRECTED PRN PRN Reason: Post Hemorrhage Miscellaneous Medication (Phenylephrine Hcl In 0.9% Nacl 1 Mg/10 Ml Syringe) 0.1 mg IVPUSH Q1M PRN PRN Reason: Hypotension Misoprostol (Misoprostol 200 Mcg Tab) 200 mcg PO ONETIME PRN PRN Reason: Post Hemorrhage Nalbuphine HCl (Nalbuphine 10 Mg/1 Ml Vial) 10 mg IVPUSH Q1H PRN PRN Reason: Pain (severe 7-10) Ropivacaine (Ropivacaine 0.2% 2mg/Ml 200 Ml Bag) 400 mg EPIDUR ASDIRECTED JORGE Sterile Water (Water For Irrigation,Sterile 1,000 Ml Container) 1,000 ml IRR ASDIRECTED PRN PRN Reason: delivery Terbutaline Sulfate (Terbutaline 1 Mg/Ml Sdv) 0.25 mg SUBCUT ASDIRECTED PRN PRN Reason: Tacysystole - Interaction Disposition, : in Room with Family Infant Interaction: Holding Infant Infant Feeding: Attempted ; Nursed Fair/Poor Support Person: Significant Other - Recovery Exam Fundal Tone: Firm Fundal Level: 1 Fingerbreadths Below Umbilicus Fundal Placement: Midline Lochia Amount: Scant, Small Lochia Color: Rubra/Red Perineum Description: Intact, Minimal Bruising/Swelling, Edematous Episiotomy/Laceration: None Bladder Status: Nonpalpable, Voiding Urinary Elimination: Voided - Exam General: Alert, Oriented HEENT: Pupils Equal Neck: Supple Lungs: Clear to Auscultation, Normal Respiratory Effort Cardiovascular: Regular Rate, Regular Rhythm GI/Abdominal Exam: Normal Bowel Sounds, Soft, Non-Tender, No Organomegaly, No Distention, No Abnormal Bruit, No Mass, Pelvis Stable Extremities: Normal Inspection, Normal Range of Motion, Non-Tender, No Pedal Edema, Normal Capillary Refill Skin: Warm, Dry, Intact Wound/Incisions: Healing Well Neurological: No New Focal Deficit Psy/Mental Status: Alert, Normal Affect, Normal Mood - Problem List Review Problem List Initiated/Reviewed/Updated: Yes - My Orders Last 24 Hours: My Active Orders 03/13/21 20:39 Patient Status [ADT] Routine May Shower [RC] ASDIRECTED Vital Signs [RC] PER UNIT ROUTINE Acetaminophen [Tylenol Extra Strength] 1,000 mg PO Q4H PRN Acetaminophen [Tylenol Extra Strength] 500 mg PO Q4H PRN Benzocaine/Menthol [Dermoplast Pain Relief 20%-0.5% [place]] 78 gm TOP ASDIRECTED PRN Docusate Sodium [Colace] 100 mg PO Q12H PRN Ibuprofen [Motrin] 400 mg PO Q4H PRN Ibuprofen [Motrin] 800 mg PO Q6H PRN Lanolin [Lansinoh HPA] See Dose Instructions TOP ASDIRECTED PRN bisacodyL [Dulcolax] 10 mg RECTAL ONETIME PRN oxyCODONE 5 mg PO Q2H PRN witch Lou [Tucks] 1 pad TOP ASDIRECTED PRN Assess Lochia [WOMSER] Per Unit Routine Assess Uterine Involution [WOMSER] Per Unit Routine Peripheral IV Discontinue [OM.PC] Routine 03/14/21 Breakfast Guest Tray [DIET] - Assessment Assessment:: doing well. - Plan Plan:: Admit for observation in anticipation of of term viable complicated with new-onset induced-hypertension. FHR Cat I. Occasional pontaneous contractions noted q 4-8 min. Expectant management, reassess cervical dilation ~1200 pm. If no change has been make, may discuss augmentation options. May ambulate and hydrotherapy as desired after reactive NST achieved; repeat NST per orders. May receive epidural if desired between 5+ cm. See new orders. Dr. Griffith notified and agreeable with POC.
--- NOTE | 2021-03-14 09:56 | OR ---
SURGEON: Cedrick Griffith MD DATE OF PROCEDURE: 03/13/2021 Ms. Nguyen is a 20-year-old patient, primigravida. She is followed in our clinic jointly by myself and nurse midwifery. She had no complication. Her diabetes screen was normal. Her GBS status was negative. The patient admitted in early labor this morning. However, when she was admitted, she was found out to be COVID positive, so COVID-positive precaution is applied. The patient progressed to 4 to 5 cm, and then, she had epidural anesthesia for labor analgesia, and I did an artificial rupture of the membrane with clear fluid. The patient later on required low-dose Pitocin to enhance her contraction. She became complete complete around 8:30 in the evening and commenced pushing, and she was able to accomplish normal spontaneous vaginal delivery of a female fetus, cried immediately. scores were reported to be 8 and 9. The weight is not available. The placenta delivered manually without any problem. Estimated blood loss was 250 to 300 mL. heart rate was category I through the entire process of labor. The patient had no complication in the labor and the delivery process. VIV / LUZ MARINA /[id number]
[2021-03-15] MEDS: Ibuprofen 800 MG Tab PO PRN ×2 (04:40→12:54)
[2021-03-15] MEDS ORDERED: Measles, Mumps & Rubella Vaccine 0.5 ML SDV SUBCUT ONE (09:28)
[2021-03-15 17:10] VITALS: BP 135/88; PULSE 74
== END 2021-03-15 18:46 | disposition home or self-care (01) | DRG 805 ==
LOC: MW.OBCHECK 04:30 → MW.OB 04:32 → MW.OBCHECK 08:55 → MW.OB 08:56 → OBSVTOIN 20:39 → MW.OB 03-14 02:21
PROVIDERS: ADMIT Obstetrics & Gynecology; ATTEND Obstetrics & Gynecology
PROC: 10E0XZZ Delivery of Products of Conception, External Approach (ICD-10-PCS; principal; 2021-03-13)
PROC: 10D17Z9 Manual Extraction of Products of Conception, Retained, Via Natural or Artificial Opening (ICD-10-PCS; 2021-03-13)
DX: O13.4 Gestational [pregnancy-induced] hypertension without significant proteinuria, complicating childbirth (principal); U07.1 COVID-19; Z37.0 Single live birth; O98.52 Other viral diseases complicating childbirth; Z3A.39 39 weeks gestation of pregnancy
CPT/HCPCS: 01967; 36415; 51702; 59025; 59409; 80053; 81003; 82570; 84156; 85014; 85018; 85027; 86592; 86850; 86900; 86901; 90471; 90707; A9270-GY; J2590; J2795; J3490; J7120; U0002

== ENCOUNTER 2021-11-10 12:29 | Emergency (ER) | payer SELFPAY ==
[2021-11-10 12:46] VITALS: PULSE 82
[2021-11-10] MEDS ORDERED: Ketorolac 30 MG/ML SDV IM ONE (13:00)
[2021-11-10 13:18] VITALS: BP 118/72
== END 2021-11-10 13:20 | disposition home or self-care (01) ==
LOC: MW.ED 12:29
DX: G89.29 Other chronic pain (principal); M25.552 Pain in left hip
CPT/HCPCS: 96372; 99283; J1885

== ENCOUNTER 2023-01-02 00:04 | Emergency (ER) | payer SELFPAY ==
[2023-01-02] MEDS ORDERED: Ketorolac 30 MG/ML SDV IM STA (01:18)
[2023-01-02 01:29] VITALS: BP 112/64; PULSE 71
== END 2023-01-02 02:41 | disposition home or self-care (01) ==
LOC: MW.ED 00:04
DX: M79.605 Pain in left leg (principal); Z88.0 Allergy status to penicillin
CPT/HCPCS: 73502; 73552; 96372; 99283; J1885

== ENCOUNTER 2023-05-02 05:44 | Emergency (ER) | payer SELFPAY ==
[2023-05-02 05:55] VITALS: BP 143/81; PULSE 62
[2023-05-02] MEDS ORDERED: Azithromycin 250 MG Tab PO ONE (06:03)
[2023-05-02] MEDS ORDERED: Ibuprofen 600 MG Tab PO ONE (06:03)
== END 2023-05-02 06:12 | disposition home or self-care (01) ==
LOC: MW.ED 05:44
DX: H66.92 Otitis media, unspecified, left ear (principal); Z88.0 Allergy status to penicillin
CPT/HCPCS: 99283; A9270

== ENCOUNTER 2023-06-30 22:37 | Emergency (ER) | payer BC ==
[2023-06-30] MEDS ORDERED: Ketorolac 30 MG/ML SDV IM ONE (23:08)
[2023-06-30] MEDS ORDERED: oxyCODONE 5 MG Tab PO ONE (23:08)
[2023-06-30] MEDS ORDERED: Dexamethasone 10 MG/ML SDV IM STA (23:08)
[2023-07-01] MEDS ORDERED: Acetaminophen/oxyCODONE 325-5 MG Tab PO ONE (01:32)
[2023-07-01 01:49] VITALS: BP 132/91; PULSE 88
== END 2023-07-01 01:50 | disposition home or self-care (01) ==
LOC: MW.ED 22:37
DX: M25.552 Pain in left hip (principal); Z88.0 Allergy status to penicillin
CPT/HCPCS: 72192; 96372; 99283; A9270; J1100; J1885

== ENCOUNTER 2023-12-13 07:43 | Emergency (ER) | payer BC ==
[2023-12-13] MEDS: Ibuprofen 400 MG Tab PO ONE (08:13)
[2023-12-13] MEDS: Ondansetron 4 MG Tab.DIS PO ONE (08:13)
[2023-12-13 08:26] LABS: BASOPHILS ABSOLUTE AUTO 0.03 K/uL (0.00-0.20); BASOPHILS PERCENT AUTO 0.4 % (0.0-1.0); EOSINOPHILS ABSOLUTE AUTO 0.22 K/uL (0.00-0.45); EOSINOPHILS PERCENT AUTO 2.9 % (0.0-6.0); HEMATOCRIT 36.8 % (37.0-47.0); HEMOGLOBIN 12.2 g/dL (12.0-16.0); IMMATURE GRAN ABSOLUTE AUTO 0.01 K/uL (0.00-0.05); IMMATURE GRAN PERCENT AUTO 0.1 % (0.0-0.4); LYMPHOCYTES ABSOLUTE AUTO 2.46 K/uL (1.00-4.80); LYMPHOCYTES PERCENT AUTO 32.8 % (24.0-44.0); MEAN CORPUSCULAR HGB CONC 33.2 g/dL (32.0-36.0); MEAN CORPUSCULAR VOLUME 84.4 fL (83.0-99.0); MEAN PLATELET VOLUME 9.7 fL (9.4-12.3); MONOCYTES ABSOLUTE AUTO 0.68 K/uL (0.00-0.80); MONOCYTES PERCENT AUTO 9.1 % (0.0-8.0); NEUTROPHILS ABSOLUTE AUTO 4.09 K/uL (1.80-7.70); NEUTROPHILS PERCENT AUTO 54.7 % (41.0-71.0); PLATELET COUNT,PLT 284 K/uL (150-400); RED BLOOD CELL COUNT 4.36 M/uL (4.10-5.30); WHITE BLOOD CELL COUNT,WBC 7.49 K/uL (3.9-11.3)
[2023-12-13 08:40] LABS: INR 1.08 (0.86-1.11); PTT,PARTIAL THROMBOPLSTIN TIME 28.4 SEC (23.9-30.7)
[2023-12-13 08:48] VITALS: BP 147/72; PULSE 57
[2023-12-13 08:55] LABS: A/G RATIO 0.8 (0.9-1.6); ALBUMIN 3.6 g/dL (3.4-5.0); BILIRUBIN TOTAL 0.2 mg/dL (0.2-1.0); CALCIUM 8.6 mg/dL (8.5-10.1); CREATININE 0.8 mg/dL (0.6-1.0); EST CRCL DRUG DOSING (CG) 82.53 mL/min; POTASSIUM,K 3.4 mmol/L (3.5-5.1); PROTEIN TOTAL,TP 8.2 g/dL (6.4-8.2)
== END 2023-12-13 12:19 | disposition home or self-care (01) ==
LOC: MW.ED 07:43
DX: T74.21XA Adult sexual abuse, confirmed, initial encounter (principal); S16.1XXA Strain of muscle, fascia and tendon at neck level, initial encounter; Z88.0 Allergy status to penicillin; Z79.899 Other long term (current) drug therapy; Z75.8 Other problems related to medical facilities and other health care; Y07.9 Unspecified perpetrator of maltreatment and neglect
CPT/HCPCS: 36415; 80053; 83690; 84703; 85025; 85610; 85730; 99284; A9270